=== PATIENT | female | born 1935 | race Caucasian/White ===

== ENCOUNTER 2024-03-23 10:44 | Emergency (ER) | payer BC, SELFPAY ==
[2024-03-23 11:00] VITALS: BP 123/65; PULSE 79; RESP 20; TEMP 36.7; O2SAT 99; BMI 18.8
[2024-03-23 11:20] VITALS: PULSE 95; RESP 20; O2SAT 95
--- NOTE | 2024-03-23 11:20 | EKG_ITS ---
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
--- NOTE | 2024-03-23 11:20 | XR_ITS ---
Examination: AP chest single view Technique one AP portable upright chest single view Exam date and time: March 23, 2024 1139 hrs. Comparison February 15, 2021 Indications: Shortness of breath beginning today. Findings: Abnormal interstitial disease throughout the lungs Normal heart size Prominent osteopenia Impression: Marked abnormal interstitial disease throughout the lungs, consider pneumonia superimposed upon pulmonary fibrosis
--- NOTE | 2024-03-23 11:21 | EDNOTE_ITS ---
ED SOB =RME/HPI General Chief Complaint: Shortness of Breath/Dyspnea Stated Complaint: SOB Time Seen by Provider: 03/23/24 11:13 Arrival date/time: 03/23/24 10:44 RME / HPI RME / HPI Narrative: 88-year-old female patient was brought in for evaluation regarding shortness of breath. Patient is having shortness of breath, and goes for the last 1 to 2 weeks, associated with chest discomfort. Patient also complained of on and off dry cough. Denies any swelling to the leg. Denies any abdominal pain denies any fever denies any sore throat denies any flulike symptoms. When the EMS arrived patient was noted to be satting 88% on room air. Her family visited her today and called EMS. Related Data Home Medications ?Medication ?Instructions ?Recorded ?Confirmed aspirin 81 mg tablet,delayed 81 mg PO QDAY ##0 8 02/11/21 release carbidopa 25 mg-levodopa 100 mg 1 tab PO TID #0 tabs 0 03/01/17 02/11/21 tablet metoprolol succinate 100 mg 100 mg PO QDAY ##0 8 02/11/21 tablet,extended release 24 hr (Toprol XL) Previous Rx's ?Medication ?Instructions ?Recorded albuterol sulfate 90 mcg/actuation 1 inh inhalation QI D PRN shortness 03/23/24 aerosol inhaler of breath or wheezing #8.5 g federico cefuroxime axetil 500 mg tablet 500 mg PO BID #14 tabs 03/23/24 doxycycline monohydrate 100 mg 100 mg PO BID #14 caps 03/23/24 capsule Allergies Allergy/AdvReac Type Severity Reaction Status Date / Time No Known Allergies Allergy Unverified 02/12/21 09:08 Review of Systems Review of Systems Narrative Review of Systems: Review of system reviewed and within normal limits except mentioned in HPI ED Exam Narrative Physical exam: VITAL SIGNS: Reviewed. GENERAL APPEARANCE: Alert and interactive, follows commands, no acute distress, HEAD AND FACE: Non-traumatic. ENT: PERRL, pink conjunctivitis, eyelid no trauma, Mucous membrane moist. NECK: Supple, nontender, no nuchal rigidity. CHEST: No tenderness, no crepitus, no paradoxical movement, no retractions. LUNGS: Clear, well ventilated, symmetric, no rales, no wheezing, no ronchi, no stridor, good breath sounds bilaterally. HEART: Regular rate, regular rhythm, no murmur, no gallops. ABDOMEN: Soft, positive bowel sounds, nondistended, no guarding, nontender, no rebound, no masses, RECTAL: Deferred. GENITAL: Deferred. NEUROLOGICAL: Gross motor function intact sensory function intact, Appropriate for age. MUSCULOSKELETAL: low back nontender, full range of motion. EXTREMITIES: Nontender, full range of motion. SKIN: Color pink, dry, no rash, no lacerations, no abrasions, no contusions. LYMPHATICS: Deferred. Course Quality Measures none Orders Category Date Time Status EKG (ED ONLY) *Do not use* NOW Care 03/23/24 11:20 Completed EKG (ED Only) Stat Exams 03/23/24 11:20 Draft US gall bladder Stat Exams 03/23/24 14:37 Stop Req XR chest 1V Stat Exams 03/23/24 11:20 Completed B-Type Natriuretic Peptide Stat Lab 03/23/24 11:30 Completed CBC Stat Lab 03/23/24 11:30 Completed Comprehensive Metabolic Panel Stat Lab 03/23/24 11:30 Completed Partial Thromboplastin Time Stat Lab 03/23/24 12:30 Completed Prothrombin Time with INR Stat Lab 03/23/24 12:30 Completed Troponin I Stat Lab 03/23/24 11:30 Completed Urinalysis, C/S if Indicated Stat Lab 03/23/24 13:51 Completed Urine Culture Stat Lab 03/23/24 13:51 Received cefTRIAXone [Rocephin] 1,000 mg Med 03/23/24 15:12 Active Sodium Chloride 0.9% [Ns] 50 ml IV X1 Vital Signs Vital signs: Vital Signs Temperature 98.1 F 03/23/24 11:00 Pulse Rate 79 03/23/24 11:00 Respiratory Rate 20 03/23/24 11:00 Blood Pressure 123/65 03/23/24 11:00 Pulse Oximetry (%) 99 03/23/24 11:00 Oxygen Delivery Method Nasal Cannula 03/23/24 11:00 Oxygen Flow Rate 2 03/23/24 11:00 Shortness of Breath / Dyspnea MDM Narrative MDM Narrative:: 88-year-old female patient was brought in for evaluation regarding shortness of breath. Patient is having shortness of breath, and goes for the last 1 to 2 weeks, associated with chest discomfort. Patient also complained of on and off dry cough. Denies any swelling to the leg. Denies any abdominal pain denies any fever denies any sore throat denies any flulike symptoms. When the EMS arrived patient was noted to be satting 88% on room air. Her family visited her today and called EMS. Patient's been off oxygen for her entire stay in the emergency room and satting 95% on room air Laboratory workup is significant for UTI no leukocytosis noted. Chest x-ray showed Marked abnormal interstitial disease throughout the lungs, consider pneumonia superimposed upon pulmonary fibrosis EKG as interpreted by me shows sinus rhythm, ventricular to 68 bpm, no ST segment elevation depression noted. 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 Patient appears nontoxic and hemodynamically stable. Patient discharged home and instructed to follow-up with primary care provider in 24 to 48 hours. Instructed to return to the emergency department immediately if worsening of symptoms Patient data External records reviewed:: None Clinical information provided by:: patient Social determinants that could affect healthcare access:: none Patient has the following chronic illnesses:: Hypertension Parkinson How is presenting disease/condition affected by chronic disease/condition?: exacerbated by Evaluation data The following diagnostics were reviewed and interpreted by me:: lab results, ra diology exam(s) and EKG tracing(s) Lab and/or radiology exams considered but not ordered:: None Interpretation Summary: See results in MDM Medications / Prescriptions Medications or Prescriptions considered but not ordered:: None Medication administrations:: Medication Administration History Ceftriaxone Sodium 1,000 mg/ (Sodium Chloride) 50 mls @ 100 mls/hr IV X1 ONE Stop: 03/23/24 15:41 Ceftriaxone IM Consultations Consultation(s) initiated? (list below): No Diagnosis Shortness of Breath Differential Diagnosis: congestive heart failure and community acquired pneumonia Most likely diagnosis given after review of the tests above:: Pneumonia, UTI Admission Indicated Admission indicated?: not indicated Admission Request Was there a request for admission?: No Disposition Plan Disposition Plan: Discharge Discharge Attestation Discharge Attestation: The patient and all family members were given an opportunity to ask questions and understood the discharge instructions. Discharge instructions specifically effects, indications for sooner follow up or return to the emergency department, and the expected course of current diagnosis. Patient condition: Stable Discharge Plan Plan Patient Disposition: HOME (Self Care) Disposition Comment: stable Prescriptions/Referrals Prescriptions/Med Rec: New doxycycline monohydrate 100 mg capsule 100 mg PO BID Qty: 14 0RF cefuroxime axetil 500 mg tablet 500 mg PO BID Qty: 14 0RF albuterol sulfate 90 mcg/actuation HFA aerosol inhaler 1 inh inhalation QID PRN (Reason: shortness of breath or wheezing) Qty: 8.5 0RF No Action metoprolol succinate [Toprol XL] 100 MG tablet extended release 24 hr 100 mg PO QDAY Qty: 0 aspirin 81 mg Tablet,Delayed Release (Dr/Ec) 81 mg PO QDAY Qty: 0 carbidopa-levodopa 25-100 mg Tablet 1 tab PO TID Qty: 0 Referrals: Jordan Dent MD [Primary Care Provider] - In 1 week Problem List Clinical Impression: UTI (urinary tract infection), PNA (pneumonia) Patient/Caregiver Discharge Instructions Discharge Activity: activity as tolerated Education Materials: Understanding Urinary Tract ..., ED Pneumonia (Adult) Additional Instructions: Thank you for the opportunity for serving you today. You are stable for discharged . You are advised to: Follow-up with your PCP in 1 to 2 days Return to ED for worsening of symptoms Increase oral fluids Take medication as prescribed Print Language: Ukrainian Stand Alone Forms: Mojgan Award Info., Patient Portal Info Letter PA/RETAIL PRODUCT DEMO SPECIALIST Supervising Physician SUBHASH/RETAIL PRODUCT DEMO SPECIALIST Supervising Physician: MD Mecca
--- NOTE | 2024-03-23 11:38 | PC.NURSE ---
PATIENT ARRIVED ED VIA EMS SECONDARY TO SHORTNESS OF BREATH. PER PATIENT AND FAMILY SHE HAS HAD COUGH TIMES 2 WEEKS AND SEEMS TO BE GETTING WORSE. PATIENT STATES SHE HAS CHEST PAIN WHEN COUGHING. NON PRODUCTIVE. NO OTHER COMPLAINTS AT TIME OF ARRIVAL. PATIENT PLACE ON [facility] WITH IV, MONITOR, O2. PATIENT TOLERATED WELL. FAMILY AT BEDSIDE. CALL LIGHT AND INSTRUCTIONS GIVEN. WILL CONTINUE TO MONITOR.
[2024-03-23 11:43] LABS: Basophils # (Auto) 0.1 Thou/mm3 (0.0-0.2); Basophils % (Auto) 1 % (0-2.5); Eosinophils # (Auto) 0.1 Thou/mm3 (0.0-0.5); Eosinophils % (Auto) 1 % (0-10); Hematocrit 33.7 % (36.0-46.0); Hemoglobin 11.4 g/dL (12.0-16.0); Immature Granulocytes % (Auto) 1 % (0-0); Immature Granulocytes Auto 0.07 Thou/mm3 (0.00-0.00); Lymphocytes # (Auto) 0.8 Thou/mm3 (1.0-4.8); Lymphocytes % (Auto) 8 % (10-50); Mean Corpuscular HGB Conc 33.8 g/dl (31.0-37.0); Mean Corpuscular Hemoglobin 30.8 pg (25.0-35.0); Mean Corpuscular Volume 91 fL (80-100); Monocytes # (Auto) 1.1 Thou/mm3 (0.0-0.8); Monocytes % (Auto) 10 % (0-12); Neutrophils # (Auto) 8.4 Thou/mm3 (1.8-7.7); Neutrophils % (Auto) 80 % (37-80); Nucleated Red Blood Cell % 0 /100 WBC (0); Platelet Count 138 Thou/mm3 (140-440); RDW Standard Deviation 44.9 fL (36.4-46.3); White Blood Count 10.5 Thou/mm3 (3.6-11.0)
[2024-03-23 12:00] VITALS: BP 126/57; PULSE 66; RESP 22; TEMP 36.7; O2SAT 97
[2024-03-23 12:00] LABS: B-Type Natriuretic Peptide 71 pg/mL (0-100)
[2024-03-23 12:12] LABS: Alanine Aminotransferase < 7 U/L (10-49); Albumin, Serum 3.9 gm/dL (3.4-4.8); Albumin/Globulin Ratio 1.6 (1.2-2.2); Alkaline Phosphatase 56 U/L (46-116); Anion Gap 7 (7-16); Aspartate Amino Transferase 15 U/L (0-34); BUN/Creatinine Ratio 23 Ratio (12-20); Bilirubin,Total 0.7 mg/dL (0.3-1.2); Blood Urea Nitrogen 23 mg/dL (9-23); Calcium 9.4 mg/dL (8.3-10.6); Calcium (Corrected) 9.5 mg/dL (8.5-10.1); Carbon Dioxide 25.9 mMol/L (20.0-31.0); Chloride 105 mMol/L (98-107); Globulin 2.5 gm/dL (2.3-3.5); Glucose 117 mg/dL (74-106); Osmolality,Calculated 280 (275-295); Potassium 4.3 mMol/L (3.4-5.1); Sodium 138 mMol/L (136-145); Total Protein 6.4 gm/dL (5.7-8.2); Troponin I < 0.020 ng/mL (0.0-0.045); eGFR 54 See Note
[2024-03-23 13:04] LABS: INR 1.1 (0.9-1.3); Partial Thromboplastin Time 32.1 Seconds (22.0-36.0); Prothrombin Time 11.5 Seconds (9.0-12.2)
[2024-03-23 14:02] LABS: Collection Type, Urine Clean Catch
[2024-03-23 14:16] VITALS: BP 167/64; PULSE 72; RESP 18; TEMP 36.4; O2SAT 96
[2024-03-23 15:06] LABS: Bilirubin,Urine Negative (Negative); Blood,Urine Negative (Negative); Clarity,Urine Turbid (Clear/Hazy); Color,Urine Yellow (Lt Yel-Yel); Glucose, Urine Negative (Negative); Hyaline Casts,Urine < 1 /hpf (0-1); Ketones,Urine 1+ (Negative); Leukocyte Esterase,Urine Positive (Negative); Nitrite,Urine Negative (Negative); Protein,Urine Trace (Neg - Trace); RBC,Urine 6 /hpf (0-3); Specific Gravity,Urine 1.023 (1.001-1.035); Squamous Epithelial Cell,Urine 9 /hpf (0-5); WBC,Urine 28 /hpf (0-5)
[2024-03-23 15:08] LABS: Culture Indicated,Urine Yes
[2024-03-23 15:48] VITALS: BP 156/63; PULSE 78; RESP 22; O2SAT 95
[2024-03-23 16:10] VITALS: BP 165/76; PULSE 63; RESP 20; TEMP 36.6; O2SAT 96
== END 2024-03-23 16:47 | disposition home or self-care (01) ==
PROVIDERS: Nurse Practitioner Family; Emergency Provider Emergency Medicine; PCP Internal Medicine
DX: J18.9 Pneumonia, unspecified organism (principal); N39.0 Urinary tract infection, site not specified; I10 Essential (primary) hypertension; G20.A1 Parkinson's disease without dyskinesia, without mention of fluctuations
CPT/HCPCS: 36415; 71045; 80053; 81001; 83880; 84484; 85025; 85610; 85730; 87086; 93005; 99283

== ENCOUNTER → 2024-04-17 | Outpatient (CLI) | payer BC, SELFPAY ==
--- NOTE | 2024-04-17 15:44 | XR_ITS ---
Examination: PA lateral chest 2 views Technique: Upright AP lateral chest 2 views Exam date and time: April 17, 2024, 1607 hrs. Comparison March 21, 2024 Indications: Coughing 2 months. Findings: Normal heart size Severe bilateral pulmonary fibrosis Moderate osteopenia Impression: Severe bilateral pulmonary fibrosis
== END | disposition home or self-care (01) ==
PROVIDERS: PCP Internal Medicine; Referring Provider Nurse Practitioner Family; Visit Provider Nurse Practitioner Family
DX: J84.10 Pulmonary fibrosis, unspecified (principal)
CPT/HCPCS: 71046

== ENCOUNTER → 2024-05-15 | Outpatient (CLI) | payer BC, SELFPAY ==
--- NOTE | 2024-05-15 16:30 | XR_ITS ---
Examination: CT chest, without intravenous contrast. Sagittal and coronal 2-D reconstructions. Exam date and time: May 15, 2024 1626 hrs. Comparison July 27, 2023 Indications: Coughing beginning 2 months ago. CTDI:vol (mGy) 6.87 DLP: (mGycm) 207 Technique: Multiple 3.0 mm axial sections of the chest to been obtained. Bone and lung density settings are obtained. Sagittal and coronal 2-D reconstructions have been obtained. Low dose protocols were performed. One or more of the following dose reduction techniques were used; automated exposure control, adjustment of the mA and/or KV according to patient size, use of iterative reconstruction technique. Findings: No thoracic aortic aneurysm dilatation Pulmonary artery segments are not enlarged Mild enlargement cardiac contour No paratracheal tracheobronchial or bronchopulmonary the COPD Moderate to severe bilateral pulmonary fibrosis with dilated bronchi in both lungs, more prominent in the upper lobes 16mm thick-walled cavitary lesion right upper lobe axial image 75 with soft tissue parenchymal disease No visualized liver or splenic lesion Contracted gallbladder No pancreatic or adrenal mass Possible 18 mm splenic artery aneurysm Impression: Moderate to severe bilateral pulmonary fibrosis Bronchiectasis 16 mm thick-walled cavitary lesion right upper lobe with soft tissue parenchymal disease, differential would include infection including active tuberculosis, underlying pulmonary neoplasm not excluded Possible 18 mm splenic artery aneurysm, recommend CTA abdomen pelvis post intravenous contrast follow-up
== END | disposition home or self-care (01) ==
LOC: CCTX 16:06
PROVIDERS: PCP Internal Medicine; Referring Provider Internal Medicine; Visit Provider Internal Medicine
DX: J84.10 Pulmonary fibrosis, unspecified (principal); K76.9 Liver disease, unspecified; R05.3 Chronic cough
CPT/HCPCS: 71250

== ENCOUNTER → 2024-06-06 | Outpatient (CLI) | payer BC, SELFPAY ==
[2024-06-06 16:40] LABS: Basophils # (Auto) 0.1 Thou/mm3 (0.0-0.2); Basophils % (Auto) 1 % (0-2.5); Eosinophils # (Auto) 0.4 Thou/mm3 (0.0-0.5); Eosinophils % (Auto) 4 % (0-10); Hematocrit 34.9 % (36.0-46.0); Hemoglobin 11.5 g/dL (12.0-16.0); Immature Granulocytes % (Auto) 1 % (0-0); Immature Granulocytes Auto 0.06 Thou/mm3 (0.00-0.00); Lymphocytes # (Auto) 1.2 Thou/mm3 (1.0-4.8); Lymphocytes % (Auto) 12 % (10-50); Mean Corpuscular Hemoglobin 29.8 pg (25.0-35.0); Mean Corpuscular Volume 90 fL (80-100); Monocytes # (Auto) 0.9 Thou/mm3 (0.0-0.8); Monocytes % (Auto) 9 % (0-12); Neutrophils # (Auto) 7.4 Thou/mm3 (1.8-7.7); Neutrophils % (Auto) 74 % (37-80); Nucleated Red Blood Cell % 0 /100 WBC (0); Platelet Count 235 Thou/mm3 (140-440); RDW Standard Deviation 46.1 fL (36.4-46.3); Red Blood Count 3.86 Miln/mm3 (4.00-5.20); White Blood Count 10.1 Thou/mm3 (3.6-11.0)
[2024-06-06 16:45] LABS: Glucose Estimated Average 108 mg/dL (80-131); Hemoglobin A1C 5.4 % Hgb (4.8-6.0)
[2024-06-06 17:04] LABS: Alanine Aminotransferase < 7 U/L (10-49); Albumin, Serum 4.1 gm/dL (3.4-4.8); Albumin/Globulin Ratio 1.5 (1.2-2.2); Alkaline Phosphatase 55 U/L (46-116); Anion Gap 6 (7-16); Aspartate Amino Transferase 16 U/L (0-34); BUN/Creatinine Ratio 19 Ratio (12-20); Bilirubin,Total 0.3 mg/dL (0.3-1.2); Blood Urea Nitrogen 21 mg/dL (9-23); Calcium 9.5 mg/dL (8.3-10.6); Calcium (Corrected) 9.5 mg/dL (8.5-10.1); Carbon Dioxide 29.6 mMol/L (20.0-31.0); Cardiac Risk Estimate 3.1 RATIO (3.7-5.6); Chloride 103 mMol/L (98-107); Cholesterol 182 mg/dL (132-200); Creatinine (Component) 1.1 mg/dL (0.6-1.3); Globulin 2.8 gm/dL (2.3-3.5); Glucose 101 mg/dL (74-106); HDL Cholesterol 58 mg/dL (40-60); LDL Cholesterol,Calculated 106 mg/dL (0-130); Osmolality,Calculated 280 (275-295); Potassium 4.9 mMol/L (3.4-5.1); Sodium 139 mMol/L (136-145); Thyroid Stimulating Hormone 3.07 uIU/mL (0.55-4.78); Total Protein 6.9 gm/dL (5.7-8.2); Triglycerides 90 mg/dL (30-150); eGFR 48 See Note
[2024-06-07 11:54] LABS: Cocci Serology, IgM Negative (Negative)
[2024-06-08 14:28] LABS: Cocci Serology, IgG Negative (Negative)
== END | disposition home or self-care (01) ==
LOC: COPL 15:28
PROVIDERS: PCP Internal Medicine; Referring Provider Internal Medicine; Visit Provider Internal Medicine
DX: N18.31 Chronic kidney disease, stage 3a (principal); R05.3 Chronic cough; R53.83 Other fatigue; R93.89 Abnormal findings on diagnostic imaging of other specified body structures; Z11.1 Encounter for screening for respiratory tuberculosis
CPT/HCPCS: 36415; 80053; 80061; 83036; 84443; 85025; 86331; 86635

== ENCOUNTER 2024-06-10 16:35 | Emergency (ER) | payer BC, SELFPAY ==
[2024-06-10 16:44] VITALS: BP 170/52; PULSE 76; RESP 20; TEMP 36.8; O2SAT 92
--- NOTE | 2024-06-10 17:03 | XR_ITS ---
Examination: PA and lateral chest 2 views TECHNIQUE: Upright PA and lateral chest 2 views Exam date and time: June 10, 2024, 1716 hours Comparison April 17, 2024 INDICATIONS: Coughing beginning 3 weeks ago. FINDINGS: Severe bilateral pulmonary fibrosis Diffuse superimposed pneumonia right lung Normal heart size Osseous structures are intact IMPRESSION: Severe bilateral pulmonary fibrosis Significant superimposed pneumonia diffusely in the right lung
--- NOTE | 2024-06-10 17:04 | PD.EDRME ---
Rapid Medical Screening Exam RME Arrival date/time: 06/10/24 16:35 88-year-old female presents to the emergency department complains of shortness of breath Chief Complaint: General Adult/Misc Complain Vital signs: Vital Signs Temperature 98.2 F 06/10/24 16:44 Pulse Rate 76 06/10/24 16:44 Respiratory Rate 20 06/10/24 16:44 Blood Pressure 170/52 H 06/10/24 16:44 Pulse Oximetry (%) 92 L 06/10/24 16:44 Oxygen Delivery Method Room Air 06/10/24 16:44
--- NOTE | 2024-06-10 17:05 | XR_ITS ---
Examination: CT chest, without intravenous contrast. Sagittal and coronal 2-D reconstructions. Exam date and time: June 10, 2024 1749 hours Comparison May 15, 2024 INDICATIONS: Coughing 2 months, CT chest May 15, 2024 16 mm cavitary lesion right upper lobe with surrounding parenchymal disease, bronchiectasis CTDI:vol (mGy) 5.58 DLP: (mGycm) 183 Technique: Multiple 3.0 mm axial sections of the chest to been obtained. Bone and lung density settings are obtained. Sagittal and coronal 2-D reconstructions have been obtained. Low dose protocols were performed. One or more of the following dose reduction techniques were used; automated exposure control, adjustment of the mA and/or KV according to patient size, use of iterative reconstruction technique. 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
[2024-06-10 17:53] LABS: Basophils # (Auto) 0.1 Thou/mm3 (0.0-0.2); Basophils % (Auto) 1 % (0-2.5); Eosinophils # (Auto) 0.5 Thou/mm3 (0.0-0.5); Eosinophils % (Auto) 6 % (0-10); Hematocrit 37.3 % (36.0-46.0); Hemoglobin 12.8 g/dL (12.0-16.0); Immature Granulocytes % (Auto) 1 % (0-0); Immature Granulocytes Auto 0.04 Thou/mm3 (0.00-0.00); Lymphocytes # (Auto) 1.4 Thou/mm3 (1.0-4.8); Lymphocytes % (Auto) 17 % (10-50); Mean Corpuscular HGB Conc 34.3 g/dl (31.0-37.0); Mean Corpuscular Volume 87 fL (80-100); Monocytes # (Auto) 0.8 Thou/mm3 (0.0-0.8); Monocytes % (Auto) 9 % (0-12); Neutrophils # (Auto) 5.4 Thou/mm3 (1.8-7.7); Neutrophils % (Auto) 67 % (37-80); Nucleated Red Blood Cell % 0 /100 WBC (0); Platelet Count 221 Thou/mm3 (140-440); RDW Standard Deviation 45.8 fL (36.4-46.3); Red Blood Count 4.27 Miln/mm3 (4.00-5.20); White Blood Count 8.2 Thou/mm3 (3.6-11.0)
[2024-06-10 18:12] LABS: Alanine Aminotransferase < 7 U/L (10-49); Albumin, Serum 4.6 gm/dL (3.4-4.8); Albumin/Globulin Ratio 1.4 (1.2-2.2); Alkaline Phosphatase 61 U/L (46-116); Anion Gap 7 (7-16); Aspartate Amino Transferase 17 U/L (0-34); BUN/Creatinine Ratio 15 Ratio (12-20); Bilirubin,Total 0.4 mg/dL (0.3-1.2); Blood Urea Nitrogen 18 mg/dL (9-23); Calcium 9.4 mg/dL (8.3-10.6); Calcium (Corrected) 9.4 mg/dL (8.5-10.1); Carbon Dioxide 27.8 mMol/L (20.0-31.0); Chloride 101 mMol/L (98-107); Creatinine (Component) 1.2 mg/dL (0.6-1.3); Globulin 3.3 gm/dL (2.3-3.5); Glucose 100 mg/dL (74-106); Osmolality,Calculated 273 (275-295); Potassium 4.7 mMol/L (3.4-5.1); Sodium 136 mMol/L (136-145); Total Protein 7.9 gm/dL (5.7-8.2); eGFR 44 See Note
[2024-06-10 18:26] LABS: B-Type Natriuretic Peptide 53 pg/mL (0-100)
[2024-06-10 19:19] VITALS: BP 176/80; PULSE 73; RESP 18; TEMP 36.7; O2SAT 95
--- NOTE | 2024-06-10 19:49 | EDNOTE_ITS ---
ED General RME/HPI General Chief complaint: Flu Like Symptoms Stated complaint: SENT BY PCP FOR TB TESTING, COUGH X 2 MONTHS Time Seen by Provider: 06/10/24 19:33 Arrival date/time: 06/10/24 16:35 CC: Chronic cough after deep inhalation, mild shortness of breath HPI ongoing for the past 3 months. Today patient got up and was not interested in eating breakfast which was of concern to family members who presented her here. Patient is awake alert oriented speaking in full sentences oxygen saturations greater than 97% denies any coughing up blood weight loss or foreign travel. RME / HPI RME / HPI narrative: 06/10/24 16:35 88-year-old female presents to the emergency department complains of shortness of breath Related Data Home Medications ?Medication ?Instructions ?Recorded ?Confirmed aspirin 81 mg tablet,delayed 81 mg PO QDAY ##0 8 02/11/21 release carbidopa 25 mg-levodopa 100 mg 1 tab PO TID #0 tabs 0 03/01/17 02/11/21 tablet metoprolol succinate 100 mg 100 mg PO QDAY ##0 8 02/11/21 tablet,extended release 24 hr (Toprol XL) Previous Rx's ?Medication ?Instructions ?Recorded albuterol sulfate 90 mcg/actuation 1 inh inhalation QI D PRN shortness 03/23/24 aerosol inhaler of breath or wheezing #8.5 g federico cefuroxime axetil 500 mg tablet 500 mg PO BID #14 tabs 03/23/24 doxycycline monohydrate 100 mg 100 mg PO BID #14 caps 03/23/24 capsule doxycycline hyclate 100 mg capsule 100 mg PO BID #14 c aps 06/10/24 prednisone 20 mg tablet See Taper PO BID 3 days #6 t abs 06/10/24 Allergies Allergy/AdvReac Type Severity Reaction Status Date / Time bee venom protein (honey bee) Allergy Verified 06/10/24 16:40 Review of Systems Review of Systems Narrative Review of Systems: GEN: No fever, no chills, no weight loss EYES: No discharge, no visual changes, no pain HEENT: No ear pain, no congestion, no sore throat PULM: No shortness of breath, + cough, no congestion CV: No chest pain, no dyspnea on exertion, no palpitations GI: No nausea, no vomiting, no diarrhea, no pain, no constipation : No frequency, no urgency, no dysuria MUSC/SKEL: No joint pain, no back pain SKIN: No rash PSYCH: No hallucinations, no depression HEME/LYMPH: No easy bleeding or bruising tendencies NEURO: No weakness, no headache Past Medical History Past Medical History NEUROLOGIC: Positive Neurological Disorders and Parkinson's Disease; Negative Seizures CARDIAC: Positive Cardiac Disorders and Hypertension; Negative Congestive Heart Failure RESPIRATORY: Negative Chronic Obstructive Pulmonary Disease (COPD) or Asthma GENITOURINARY: Negative Renal Disease ENDOCRINE: Negative Diabetes Mellitus Type 1 or Diabetes Mellitus Type 2 HEMATOLOGIC: Negative Sickle Cell Disease OTHER HISTORY: Negative Blood Transfusions, Blood Transfusion Reaction or Anesthesia Reactions Surgical History SURGICAL: Positive Tonsillectomy and Hysterectomy Social History SMOKING STATUS: Former smoker SUBSTANCE USE: does not use ED Exam Narrative Physical exam: [General: Thin, emaciated, but not deconditioned, not in any acute distress Head normocephalic HEENT: Within acceptable limits Neck is supple nontender Chest equal chest rise nontender to palpation Respiratory: End expiratory crackles, cough elicited with deep inhalation but not with normal respiration. No shortness of breath while supine in bed. CV: Rate rhythm is regular no murmurs rubs or clicks Abdomen is flat soft nontender no masses positive bowel sounds all 4 quadrants Back: No CVA tenderness no spinous process tenderness from cervical spine thoracic and lumbar spine Skin: Intact no petechiae rash induration ulceration or crepitus Extremities: Moving all extremity against resistance cap refill less than 2 seconds neurosensory intact Neuro: Awake alert oriented x3 Glascow coma 15 no focal deficits] Course Course Course Narrative: Patient is nontoxic stable vital signs oxygen saturation of 97% while discussing the patient's condition. This time comfortable given the patient IM injection and starting her on steroids and antibiotics at home. Patient is vies if there is worsening of symptoms return the emergency room for further evaluation. Quality Measures none Orders Category Date Time Status CT chest wo con Stat Exams 06/10/24 17:05 Completed XR chest 2V Stat Exams 06/10/24 17:03 Completed BNP [B-Type Natriuretic Peptide] Stat Lab 06/10/24 17:30 Completed CBC Stat Lab 06/10/24 17:30 Completed CMP [Comprehensive Metabolic Panel] Stat Lab 06/10/24 17:30 Completed Cocci Serology IgM with reflex to IgG [Cocci Serology, Lab 06/10/24 17:30 Received Unk History] Stat cefTRIAXone [Rocephin] 1,000 mg Med 06/10/24 19:48 Discontinued Lidocaine 1% 20 ml [Xylocaine 1% 20 ML] 2.1 ml IM X1 predniSONE Med 06/10/24 19:47 Discontinued 20 mg PO X1 ONE Vital Signs Vital signs: Vital Signs Temperature 98.2 F 06/10/24 16:44 Pulse Rate 76 06/10/24 16:44 Respiratory Rate 20 06/10/24 16:44 Blood Pressure 170/52 H 06/10/24 16:44 Pulse Oximetry (%) 92 L 06/10/24 16:44 Oxygen Delivery Method Room Air 06/10/24 16:44 Discharge Plan Plan Patient Disposition: HOME (Self Care) Patient condition on transfer: Stable Prescriptions/Referrals Prescriptions/Med Rec: New doxycycline hyclate 100 mg capsule 100 mg PO BID Qty: 14 0RF prednisone 20 mg tablet See Taper PO BID 3 Days Qty: 6 0RF Taper: Prednisone Taper 20 mg DAILY for 2 Days and 0 Hour 10 mg DAILY for 2 Days and 0 Hour 5 mg DAILY for 7 Days and 0 Hour No Action metoprolol succinate [Toprol XL] 100 MG tablet extended release 24 hr 100 mg PO QDAY Qty: 0 aspirin 81 mg Tablet,Delayed Release (Dr/Ec) 81 mg PO QDAY Qty: 0 carbidopa-levodopa 25-100 mg Tablet 1 tab PO TID Qty: 0 doxycycline monohydrate 100 mg capsule 100 mg PO BID Qty: 14 0RF cefuroxime axetil 500 mg tablet 500 mg PO BID Qty: 14 0RF albuterol sulfate 90 mcg/actuation HFA aerosol inhaler 1 inh inhalation QID PRN (Reason: shortness of breath or wheezing) Qty: 8.5 0RF Referrals: Aquiles Giordano MD [Physician] - In 1 week No Primary/Family,Physician [Primary Care Provider] - In 1 week Problem List Clinical Impression: Pneumonia, Pulmonary fibrosis Patient/Caregiver Discharge Instructions Education Materials: Chest and Lung Problems, Treating Pneumonia Additional Instructions: Take the medications as prescribed, if there is a worsening of symptoms in spite of the medications return the emergency room immediately for further evaluation. Follow-up with your primary care doctor please make sure you get a nebulizer for all the nebulizer solution you have at home. Print Language: Colombian Stand Alone Forms: Mojgan Award Info., Patient Portal Info Letter SUBHASH/LORENA Supervising Physician ANGELO Supervising Physician: Jimbo Mckeon ENP [facility] Clinical Information Provided by: patient and family Medical Records reviewed [facility] Meds/Rx considered, not ordered None Labs/Rad/Tests considered, not ordered None EKG EKG not done Labs Labs: Interpreted by me Lab(s) Interpretation(s): CBC shows no acute leukocytosis anemia thrombocytopenia CMP shows no significant electrolyte imbalances renal impairment transaminitis or T. bili elevation BNP is negative Cocci titer is pending. Imaging Imaging interpretation: Interpreted by me Imaging Interpretation(s): CT of the chest as interpreted by me read by radiology shows pulmonary fibrosis with superimposed bilateral pneumonia. Chest x-ray shows pulmonary fibrosis with a superimposed pneumonia. Medication Administration(s) Medication Administration History Discontinued Medications Ceftriaxone Sodium 1,000 mg/ (Lidocaine HCl 2.1 ml) 0 mg IM X1 ONE Stop: 06/10/24 19:49 Last Admin: 06/10/24 20:15 Dose: 1,000 mg Documented By: OSIRIS Prednisone (Prednisone 20 Mg Tablet) 20 mg PO X1 ONE Stop: 06/10/24 19:48 Last Admin: 06/10/24 20:14 Dose: 20 mg Documented By: OSIRIS None
[2024-06-10] MEDS: predniSONE 20 MG TABLET PO (20:14)
[2024-06-10] MEDS: cefTRIAXone 1,000 MG, LIDOCAINE 1% 20 ML 2.1 ML IM (20:15)
[2024-06-11 12:54] LABS: Cocci Serology, IgM Negative (Negative)
[2024-06-13 12:52] LABS: Cocci Serology, IgG Negative (Negative)
== END 2024-06-10 20:35 | disposition home or self-care (01) ==
PROVIDERS: Nurse Practitioner Primary Care; Emergency Provider Emergency Medicine
DX: J18.9 Pneumonia, unspecified organism (principal); J84.10 Pulmonary fibrosis, unspecified; Z87.891 Personal history of nicotine dependence
CPT/HCPCS: 36415; 71046; 71250; 80053; 83880; 85025; 86331; 86635; 96372; 99284; J0696; J3490; J7512

== ENCOUNTER → 2024-06-19 | Outpatient (CLI) | payer BC, SELFPAY ==
[2024-06-19 11:07] LABS: Quantiferon-TB* See Sep Rpt
== END | disposition home or self-care (01) ==
LOC: COPL 10:42
PROVIDERS: PCP Internal Medicine
DX: J18.9 Pneumonia, unspecified organism (principal)
CPT/HCPCS: 86480

== ENCOUNTER → 2024-07-08 | Outpatient (CLI) | payer MEDICARE, SELFPAY ==
[2024-07-08 11:30] LABS: Quantiferon-TB* See Sep Rpt
== END | disposition home or self-care (01) ==
PROVIDERS: PCP Internal Medicine
DX: J98.4 Other disorders of lung (principal)
CPT/HCPCS: 86480

== ENCOUNTER 2024-07-23 15:48 | Emergency (ER) | payer MEDICARE, SELFPAY ==
[2024-07-23 16:18] VITALS: BP 168/72; PULSE 73; RESP 18; TEMP 36.6; O2SAT 94
--- NOTE | 2024-07-23 16:26 | XR_ITS ---
Examination: Ribs, right, with PA chest, 4 views Technique: Chest PA, RIBS AP, RPO, LPO, 4 views Exam date and time: 11/22/2024 1717 hours INDICATIONS: Ground-level fall yesterday with injury to the right chest, right chest pain. FINDINGS: Severe bilateral pulmonary fibrosis No pneumothorax Ectatic thoracic aorta Severe osteopenia No acute rib fractures IMPRESSION: Severe pulmonary fibrosis No pneumothorax No acute rib fractures
--- NOTE | 2024-07-23 16:26 | XR_ITS ---
Examination: CT brain head without contrast. 2-D sagittal coronal reconstructions Date and time of exam:July 23, 2024 1634 hours Comparison February 26, 2019 MEDICATIONS: Ground-level fall today CTDI: vol (mGy):45.4 DLP: (mGycm):968 Technique: Multiple CT axial sections of the brain have been obtained, 5 mm slice thickness. Contrast has not been administered. 2-D sagittal, coronal reconstructions have been obtained Low dose protocols were performed. One or more of the following dose reduction techniques were used; automated exposure control, adjustment of the mA and/or KV according to patient size, use of iterative reconstruction technique. Findings: No significant ventricular enlargement. Intra-axial or extra-axial hemorrhage density is not seen. No mass effect or midline shift Basal cisterns are not remarkable. Fourth ventricle is midline. Cranial vault intact. 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
--- NOTE | 2024-07-23 16:26 | XR_ITS ---
Examination: CT cervical spine without contrast 2-D sagittal reconstructions 2-D coronal reconstructions 3-D reconstructions. Exam date and time:July 23, 2024 1634 hours MEDICATIONS: Ground-level fall today with injury to the neck, neck pain CTDI:vol (mGy) 7.28 DLP: (mGycm) 163 Technique: Multiple 2 mm axial sections of the cervical spine have been obtained. The coronal and sagittal reconstructions have been obtained. 3-D reconstructions have been obtained. Low dose protocols were performed. One or more of the following dose reduction techniques were used; automated exposure control, adjustment of the mA and/or KV according to patient size, use of iterative reconstruction technique. Findings: Axial sections demonstrate intact base of the skull. 4 mm anterolisthesis C2 on C3, likely related to advanced degenerative disc disease C3-C4, C4-C5, C5-C6, C6-C7 C1 exhibit satisfactory relationship to the odontoid. No acute cervical vertebral body fracture seen. Alignment posterior spinous processes satisfactory. Impression: No acute cervical fracture. Possible 11 mm cavitary lesion in the right upper lobe with adjacent parenchymal disease. Recommend PA and lateral AP lordotic chest follow-up
--- NOTE | 2024-07-23 16:26 | XR_ITS ---
Examination: Shoulder,left, 3 views Technique: Shoulder AP internal rotation, AP external rotation, Y view shoulder, 3 views Exam date and time :July 23, 2024 1921 hours INDICATIONS: Ground-level fall yesterday with injury to left shoulder, left shoulder pain. FINDINGS: Prominent osteopenia. Moderate narrowing glenohumeral joint No shoulder fracture or dislocation IMPRESSION: No shoulder fracture or dislocation
--- NOTE | 2024-07-23 16:27 | PD.EDRME ---
Rapid Medical Screening Exam RME Arrival date/time: 07/23/24 15:48 88-year-old female presents department today for complaint of ground-level fall yesterday patient reports head and neck pain as well as right rib pain and left shoulder pain patient is multiple abrasions have been cleaned and dressed by primary care doctor Chief Complaint: Fall Time Seen by Provider: 07/23/24 16:12 Vital signs: Vital Signs Temperature 97.8 F 07/23/24 16:18 Pulse Rate 73 07/23/24 16:18 Respiratory Rate 18 07/23/24 16:18 Blood Pressure 168/72 H 07/23/24 16:18 Pulse Oximetry (%) 94 L 07/23/24 16:18 Oxygen Delivery Method Room Air 07/23/24 16:18
--- NOTE | 2024-07-23 19:27 | XR_ITS ---
Examination: Forearm, left, 2 views. Technique: Forearm, AP, lateral 2 views Date and time of exam: July 23, 2024 1945 hours INDICATIONS: Patient fell today with images before, forearm pain. FINDINGS: Severe osteopenia No acute fracture No dislocation No foreign body IMPRESSION: No acute fracture
--- NOTE | 2024-07-23 19:29 | PD.EDFALL ---
ED Fall Injury RME/HPI General Chief Complaint: Fall Stated Complaint: FALL YESTERDAY, PAIN TO LEFT ARM AND BRUISE FACE Time Seen by Provider: 07/23/24 16:12 Arrival date/time: 07/23/24 15:48 RME / HPI RME / HPI Narrative: 07/23/24 15:48 88-year-old female presents department today for complaint of ground-level fall yesterday patient reports head and neck pain as well as right rib pain and left shoulder pain patient is multiple abrasions have been cleaned and dressed by primary care doctor DR. MCGEE MAIN ED EVALUATION: 88 y/o female with Hx of Parkinson's Disease and HTN BIB daughter presents to ED c/o left forearm, wrist and right rib pain s/p ground-level fall x Yesterday. Patient was pushing her walker when she suddenly fell. She does not know why or how she fell. Patient was seen by PCP where a laceration was copiously irrigated, closed with Steri-strips, and covered with gauze. PCP advised patient to come to ED for further evaluation. She has been taking Ibuprofen 600 mg with relief. Denies shortness of breath or palpitations. Also denies taking blood thinners. Patient lives alone, but following incident her daughter spent the night with her. No other concerns or complaints expressed at this time. Related Data Home Medications ?Medication ?Instructions ?Recorded ?Confirmed aspirin 81 mg tablet,delayed 81 mg PO QDAY ##0 03/01/17 02/11/21 release carbidopa 25 mg-levodopa 100 mg 1 tab PO TID #0 tabs 03/01/17 02/11/21 tablet metoprolol succinate 100 mg 100 mg PO QDAY ##0 03/01/17 02/11/21 tablet,extended release 24 hr (Toprol XL) Previous Rx's ?Medication ?Instructions ?Recorded albuterol sulfate 90 mcg/actuation 1 inh inhalation QID PRN shortness 03/23/24 aerosol inhaler of breath or wheezing #8.5 grams cefuroxime axetil 500 mg tablet 500 mg PO BID #14 tabs 03/23/24 doxycycline monohydrate 100 mg 100 mg PO BID #14 caps 03/23/24 capsule doxycycline hyclate 100 mg capsule 100 mg PO BID #14 caps 06/10/24 Allergies Allergy/AdvReac Type Severity Reaction Status Date / Time bee venom protein (honey bee) Allergy Verified 06/10/24 16:40 Review of Systems Review of Systems Systems Reviewed: All systems reviewed, normal except as documented Past Medical History Past Medical History NEUROLOGIC: Positive Neurological Disorders and Parkinson's Disease CARDIAC: Positive Cardiac Disorders and Hypertension Surgical History SURGICAL: Positive Tonsillectomy and Hysterectomy ED Exam Narrative Physical exam: GEN. APPEARANCE: The patient is alert awake oriented X-3 in no distress, lying down comfortably, does not look ill/toxic. Patient has good eye contact. Patient is cooperative. VITALS: All vitals were reviewed and the pulse ox is 94% on room air which is normal according to my interpretation. HEENT: Normocephalic, atraumatic. Pupils are equal and reactive. Oral mucosa is moist. Patent Nares NECK: Supple, nontender, no thyromegaly, no meningismus, no JVD CHEST: Symmetrical, atraumatic, and with equal expansion , Nontender on palpation no deformity and no crepitus. CARDIOVASCULAR: Heart regular rhythm no murmur or gallop rub or extra beats. LUNGS: Clear to auscultation bilaterally with symmetrical chest rise. No laboring tachypnea or wheezing. No intercostal subcostal retraction. No rales and no rhonchi. ABDOMEN: Soft, flat, nontender to palpation, no guarding or rebound tenderness. There are no abnormal masses palpated. Active and normal bowel sounds. EXTREMITIES: Nontender. No edema. No cyanosis. Patient is able to move all 4 extremities well, with full ROM and good CSM. SKIN: Warm and dry, no jaundice or rashes noted. Prominent skin tear t left forearm closed with Steri-strips, thoroughly irrigated, laceration and hematoma to left upper forehead with no active bleed. MUSCULOSKELETAL: No lumbar or midline bony tenderness. There is no CVA tenderness. No paraspinal muscle spasm or tenderness. NEURO: Patient is BOLANOS x 4, Cranial nerves II through XII grossly intact. There is no focal neurologic deficits noted. 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 PSYCHIATRIC: Patient is in normal mood and affect. Course Quality Measures none Orders Category Date Time Status EKG (ED ONLY) *Do not use* NOW Care 07/23/24 19:[address] cervical spine wo con Stat Exams 07/23/24 16:[address] head/brain wo con Stat Exams 07/23/24 16:26 Completed EKG (ED Only) Stat Exams 07/23/24 19:32 Draft XR forearm LT 2V Stat Exams 07/23/24 19:27 Completed XR ribs RT min 3V w CXR1V Stat Exams 07/23/24 16:26 Completed XR shoulder LT min 2V Stat Exams 07/23/24 16:26 Completed CBC Stat Lab 07/23/24 20:08 Completed CK [Creatine Kinase] Stat Lab 07/23/24 20:08 Completed CMP [Comprehensive Metabolic Panel] Stat Lab 07/23/24 20:08 Completed Troponin I Stat Lab 07/23/24 20:08 Completed Urinalysis, C/S if Indicated Stat Lab 07/23/24 20:20 Completed Urine Culture Stat Lab 07/23/24 20:20 Received TET,DIP/PERT AC (Adult)-Tdap [Boostrix Adult (Tdap) Med 07/23/24 19:29 Discontinued Vacc] 0.5 ml IMI .ONCE ONE Vital Signs Vital signs: Vital Signs Temperature 97.8 F 07/23/24 16:18 Pulse Rate 73 07/23/24 16:18 Respiratory Rate 18 07/23/24 16:18 Blood Pressure 168/72 H 07/23/24 16:18 Pulse Oximetry (%) 94 L 07/23/24 16:18 Oxygen Delivery Method Room Air 07/23/24 16:18 Fall MDM Narrative MDM Narrative:: Scribe Attestation: Opal Anton am scribing for and in the presence of Dr. Mcgee. Provider Notation: Although this document has been carefully reviewed, there may still be some phonetic and other typographical errors.? These errors are purely grammatical due to imperfections in the software program and should not be construed in any way to? compromise the substance of the patient's medical care during this visit. X-rays are unremarkable, CT of spine with no acute abnormalities. Updated patient and daughter n lung findings and stated that this was known. Patient data External records reviewed:: [facility] previous records (Reviewed prior ED records from 06/10/24. Patient was seen for Pneumonia.) Clinical information provided by:: patient Social determinants that could affect healthcare access:: none Patient has the following chronic illnesses:: Parkinson's Disease, Hypertension How is presenting disease/condition affected by chronic disease/condition?: exacerbated by Evaluation data The following diagnostics were reviewed and interpreted by me:: radiology exam(s) Lab and/or radiology exams considered but not ordered:: None Interpretation Summary: RADIOLOGY Shoulder X-Ray: FINDINGS: Prominent osteopenia. Moderate narrowing glenohumeral joint No shoulder fracture or dislocation IMPRESSION: No shoulder fracture or dislocation Forearm X-Ray: FINDINGS: Severe osteopenia No acute fracture No dislocation No foreign body IMPRESSION: No acute fracture Ribs X-Ray: FINDINGS: Severe bilateral pulmonary fibrosis No pneumothorax Ectatic thoracic aorta Severe osteopenia No acute rib fractures IMPRESSION: Severe pulmonary fibrosis No pneumothorax No acute rib fractures Head CT: Findings: No significant ventricular enlargement. Intra-axial or extra-axial hemorrhage density is not seen. No mass effect or midline shift Basal cisterns are not remarkable. Fourth ventricle is midline. Cranial vault intact. 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 4 mm anterolisthesis C2 on C3, likely related to advanced degenerative disc disease C3-C4, C4-C5, C5-C6, C6-C7 C1 exhibit satisfactory relationship to the odontoid. No acute cervical vertebral body fracture seen. Alignment posterior spinous processes satisfactory. Impression: No acute cervical fracture. Possible 11 mm cavitary lesion in the right upper lobe with adjacent parenchymal disease. Recommend PA and lateral AP lordotic chest follow-up Medications / Prescriptions Medications or Prescriptions considered but not ordered:: None Medication administrations:: Medication Administration History Discontinued Medications Diphtheria/Tetanus/Acell Pertussis (Diphth,Pertuss(Acell),Tet Vac 0.5 Ml Syr- Adult) 0.5 ml IMi .ONCE ONE Stop: 07/23/24 19:30 Last Admin: 07/23/24 20:08 Dose: 0.5 ml Documented By: MF See above if any Consultations Consultation(s) initiated? (list below): No Diagnosis Fall Differential Diagnosis: syncope, dislocation of shoulder region, fracture of wrist, compression fracture and concussion without loss of consciousness Most likely diagnosis given after review of the tests above:: Fall, Rib pain, Skin tear, Pulmonary fibrosis, Head trauma, Degenerative Disc Disease of the neck Admission Indicated Admission indicated?: not indicated Explain why admission is indicated or not indicated:: Patient does not meet admission criteria Admission Request Was there a request for admission?: No Disposition Plan Disposition Plan: Discharge Discharge Attestation Discharge Attestation: The patient and all family members were given an opportunity to ask questions and understood the discharge instructions. Discharge instructions specifically effects, indications for sooner follow up or return to the emergency department, and the expected course of current diagnosis. Patient condition: Stable Discharge Plan Plan Patient Disposition: HOME (Self Care) Prescriptions/Referrals Prescriptions/Med Rec: No Action metoprolol succinate [Toprol XL] 100 MG tablet extended release 24 hr 100 mg PO QDAY Qty: 0 aspirin 81 mg Tablet,Delayed Release (Dr/Ec) 81 mg PO QDAY Qty: 0 carbidopa-levodopa 25-100 mg Tablet 1 tab PO TID Qty: 0 doxycycline monohydrate 100 mg capsule 100 mg PO BID Qty: 14 0RF cefuroxime axetil 500 mg tablet 500 mg PO BID Qty: 14 0RF albuterol sulfate 90 mcg/actuation HFA aerosol inhaler 1 inh inhalation QID PRN (Reason: shortness of breath or wheezing) Qty: 8.5 0RF doxycycline hyclate 100 mg capsule 100 mg PO BID Qty: 14 0RF Referrals: Paul Powers FNP [Primary Care Provider] - In 1 week Problem List Clinical Impression: Head trauma, Skin tear, Pulmonary fibrosis, Fall, Rib pain, Degenerative disc disease, cervical Patient/Caregiver Discharge Instructions Discharge Activity: activity as tolerated Education Materials: ED Head Injury (Adult) Print Language: Maltese Stand Alone Forms: [employer] Award Info., Patient Portal Info Letter
--- NOTE | 2024-07-23 19:32 | EKG_ITS ---
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: : 1935 Requested By: Radha Gay Order Number: [id number] Reading MD: Radha Gay Measurements Intervals [place] Rate: 77 P: 42 SD: 195 QRS: -50 QRSD: 105 T: 25 QT: 362 QTc: 412 Interpretive Statements SINUS RHYTHM LEFT AXIS DEVIATION [QRS AXIS < -30] LOW QRS VOLTAGE IN PRECORDIAL LEADS [QRS DEFLECTION < 1.0 mV IN CHEST LEADS] ANTEROSEPTAL MYOCARDIAL INFARCTION , OF INDETERMINATE AGE [40+ ms Q WAVE IN V1-V4] Compared to ECG 03/23/2024 11:44:51 Low QRS voltage now present Myocardial infarct finding now present Ventricular premature complex(es) no longer present T-wave abnormality no longer present /store/[id number]
[2024-07-23] MEDS: DIPHTH,PERTUSS(ACELL),TET VAC 0.5 ML SYR- ADULT IMi (20:08)
[2024-07-23 20:31] LABS: Collection Type, Urine Clean Catch
[2024-07-23 20:37] LABS: Basophils # (Auto) 0.1 Thou/mm3 (0.0-0.2); Basophils % (Auto) 1 % (0-2.5); Eosinophils # (Auto) 0.4 Thou/mm3 (0.0-0.5); Eosinophils % (Auto) 4 % (0-10); Hematocrit 36.6 % (36.0-46.0); Immature Granulocytes % (Auto) 1 % (0-0); Immature Granulocytes Auto 0.07 Thou/mm3 (0.00-0.00); Lymphocytes # (Auto) 1.5 Thou/mm3 (1.0-4.8); Lymphocytes % (Auto) 15 % (10-50); Mean Corpuscular HGB Conc 32.8 g/dl (31.0-37.0); Mean Corpuscular Hemoglobin 29.3 pg (25.0-35.0); Mean Corpuscular Volume 90 fL (80-100); Monocytes # (Auto) 0.7 Thou/mm3 (0.0-0.8); Monocytes % (Auto) 7 % (0-12); Neutrophils % (Auto) 73 % (37-80); Nucleated Red Blood Cell % 0 /100 WBC (0); Platelet Count 236 Thou/mm3 (140-440); RDW Standard Deviation 48.6 fL (36.4-46.3); Red Blood Count 4.09 Miln/mm3 (4.00-5.20); White Blood Count 9.7 Thou/mm3 (3.6-11.0)
[2024-07-23 20:40] LABS: Bacteria,Urine 3+; Bilirubin,Urine Negative (Negative); Blood,Urine Negative (Negative); Clarity,Urine Turbid (Clear/Hazy); Color,Urine Lt-Yellow (Lt Yel-Yel); Glucose, Urine Negative (Negative); Ketones,Urine Negative (Negative); Leukocyte Esterase,Urine Positive (Negative); Nitrite,Urine Positive (Negative); Protein,Urine Negative (Neg - Trace); RBC,Urine 5 /hpf (0-3); Specific Gravity,Urine 1.018 (1.001-1.035); Squamous Epithelial Cell,Urine 7 /hpf (0-5); Urobilinogen,Urine Negative mg/dL (0.0-1.0); WBC,Urine 52 /hpf (0-5)
[2024-07-23 20:41] LABS: Culture Indicated,Urine Yes
[2024-07-23 20:47] VITALS: BP 191/78; PULSE 75; RESP 20; TEMP 36.3; O2SAT 96
[2024-07-23 20:55] LABS: Alanine Aminotransferase < 7 U/L (10-49); Albumin, Serum 4.3 gm/dL (3.4-4.8); Albumin/Globulin Ratio 1.8 (1.2-2.2); Alkaline Phosphatase 57 U/L (46-116); Anion Gap 9 (7-16); Aspartate Amino Transferase 10 U/L (0-34); BUN/Creatinine Ratio 17 Ratio (12-20); Bilirubin,Total 0.4 mg/dL (0.3-1.2); Blood Urea Nitrogen 17 mg/dL (9-23); Calcium 9.8 mg/dL (8.3-10.6); Calcium (Corrected) 9.8 mg/dL (8.5-10.1); Carbon Dioxide 25.5 mMol/L (20.0-31.0); Chloride 102 mMol/L (98-107); Creatine Kinase 34 U/L (34-171); Globulin 2.4 gm/dL (2.3-3.5); Glucose 101 mg/dL (74-106); Osmolality,Calculated 273 (275-295); Potassium 4.3 mMol/L (3.4-5.1); Sodium 136 mMol/L (136-145); Total Protein 6.7 gm/dL (5.7-8.2); Troponin I < 0.020 ng/mL (0.0-0.045); eGFR 54 See Note
[2024-07-23 21:50] VITALS: BP 168/78; PULSE 80; RESP 18
== END 2024-07-23 21:50 | disposition home or self-care (01) ==
PROVIDERS: Emergency Provider Emergency Medicine
DX: S01.81XA Laceration without foreign body of other part of head, initial encounter (principal); S51.812A Laceration without foreign body of left forearm, initial encounter; W18.30XA Fall on same level, unspecified, initial encounter; J84.10 Pulmonary fibrosis, unspecified; M85.822 Other specified disorders of bone density and structure, left upper arm; M50.30 Other cervical disc degeneration, unspecified cervical region; G20.A1 Parkinson's disease without dyskinesia, without mention of fluctuations; I10 Essential (primary) hypertension; S29.9XXA Unspecified injury of thorax, initial encounter
CPT/HCPCS: 36415; 70450; 71101; 72125; 73030; 73090; 80053; 81001; 82550; 84484; 85025; 87077; 87086; 87186; 90471; 90715; 93005; 99284

== ENCOUNTER 2024-07-27 16:51 | Inpatient (IN) | payer MEDICARE, SELFPAY ==
[2024-07-27] VITALS (12 sets, daily range): BP systolic 146–174; BP diastolic 55–80; PULSE 70–79; RESP 16–28; TEMP 36.4–36.6; O2SAT 91–95; BMI 16.6; BMI 16.3
--- NOTE | 2024-07-27 18:05 | PD.EDFALL ---
ED Fall Injury RME/HPI General Chief Complaint: Fall Stated Complaint: FALL Time Seen by Provider: 07/27/24 18:06 Arrival date/time: 07/27/24 16:51 RME / HPI RME / HPI Narrative: This section includes all my notes and documentations, including HPI, PE, and ED course. Blas Mcarthur MD HPI: 88 y/o female with Hx of Parkinson's and Degenerative Disc Disease BIBA from independent living facility c/o headache and tailbone pain s/p fall x approximately 24 hours ago. Patient does not remember how or why she fell. Daughter was not able to get in contact with her mother so she went over to check on patient. Daughter found patient on the floor. Patient was on the floor for 24 hours. Uncertain by her head injury. Uncertain about syncope. Currently, patient reports severe pain in the tailbone region. With any movement, including sitting, the pain is unbearable. No neck pain or back pain. No chest pain or abdominal pain. No pain in the limbs. No other complaints. ROS: All negative except as documented in HPI. Physical Exam: General: Alert and oriented. No acute distress wearing still. Eyes: Conjunctivae and lids clear. EOMI. PERRL. ENT: No signs of head trauma. Neck: Supple. No tenderness. Heart: RRR. Lungs: No respiratory distress. Good air movement. No rhonchi, wheezing, rales. Chest: No tenderness. Abdomen: Soft and nontender. Normal bowel sounds. No distension. No rebound or guarding. Back: Severe tenderness in the sacral region. Legs: No clubbing, cyanosis, edema. Skin: Warm and dry. Neuro: Alert and oriented X 3. Cranial Nerves II-XII grossly intact. No peripheral motor deficits. Musculoskeletal: All major joints and bones are not tender with no limited ROM. I reviewed EMS notes. I reviewed all diagnostic test results: My interpretation of the EKG is: Sinus rhythm (71 bpm) with nonspecific ST-T changes. My interpretation of the chest x-ray is: NAD. My review of the Head/Brain CT report is: NAD. My review of the Facial Bones CT report is: NAD. My review of the C-Spine CT report is: NAD. My review of the T-Spine CT report is: No fracture. My review of the L-Spine CT report is: Sacral fractures. My review of the Chest/Abdomen/Pelvis CT report is: NAD. Blood tests and urine tests unremarkable. Covid/Influenza: Negative. At this point, diagnoses include: Intractable pain, Fall, Syncope, Sacral Fractures, unsafe disposition at home. Treatment here included: Zofran 4 mg, IV fluid. I discussed the case with our hospitalist. About the presentation and exam and diagnostics and treatments here. And need of further care in the hospital. Will accept the patient. Blas Mcarthur MD Related Data Home Medications ?Medication ?Instructions ?Recorded ?Confirmed carbidopa 25 mg-levodopa 100 mg 1 tab PO TID #0 tabs 03/01/17 07/27/24 tablet metoprolol succinate 100 mg 100 mg PO QDAY ##0 03/01/17 07/27/24 tablet,extended release 24 hr (Toprol XL) losartan 25 mg tablet 25 mg PO DAILY 07/27/24 07/28/24 mirtazapine 7.5 mg tablet 7.5 mg PO Q12H 07/27/24 07/28/24 prednisone 10 mg tablet 10 mg PO Q12H 07/27/24 07/28/24 Previous Rx's ?Medication ?Instructions ?Recorded doxycycline hyclate 100 mg capsule 100 mg PO BID #14 caps 06/10/24 Allergies Allergy/AdvReac Type Severity Reaction Status Date / Time bee venom protein (honey bee) Allergy Verified 06/10/24 16:40 Review of Systems Review of Systems Systems Reviewed: All systems reviewed, normal except as documented Past Medical History Past Medical History NEUROLOGIC: Positive Neurological Disorders and Parkinson's Disease CARDIAC: Positive Cardiac Disorders RESPIRATORY: Positive Pulmonary Fibrosis MUSCULOSKELETAL: Positive Degenerative Disk Disease (Cervical) Surgical History SURGICAL: Positive Tonsillectomy and Hysterectomy Social History SMOKING STATUS: Former smoker ED Exam Narrative Physical exam: Refer to HPI above Course Course Course Narrative: CXR is ordered for determining the etiology of shortness of breath. Quality Measures none Orders Category Date Time Status Patient Condition Routine Admission 07/27/24 22:[address] in Observation Status Routine Admission 07/27/24 22:08 Active Bedrest NOW Care 07/27/24 22:09 Active Bedside Influenza A&B Antigen Test NOW Care 07/27/24 18:14 Completed COVID-19 Screening Questionnaire NOW Care 07/27/24 21:32 Completed Decision to Admit X1 Care 07/27/24 21:32 Completed EKG (ED ONLY) *Do not use* NOW Care 07/27/24 18:15 Completed Intake and Output QSHIFT Care 07/27/24 22:15 Ordered Intake and Output QSHIFT Care 07/28/24 22:15 Ordered Miscellaneous Nursing Order NOW Care 07/27/24 22:13 Active Notify provider NEEDED Care 07/27/24 22:08 Active Nurse Swallow Screen X1 Care 07/27/24 22:13 Completed Saline [Insert IV] NOW Care 07/27/24 18:14 Active Straight [In and Out Catheter] X1 Care 07/27/24 18:14 Completed Referral Physical Therapy Routine Cons 07/27/24 22:56 Active Referral Wound Care Routine Cons 07/27/24 23:05 Active Diet Regular Diet 07/28/[address] cervical spine wo con Stat Exams 07/27/24 18:[address] chest abdomen pelvis wo Stat Exams 07/27/24 18:[address] facial bones wo con Stat Exams 07/27/24 18:[address] head/brain wo con Stat Exams 07/27/24 18:[address] lumbar spine wo con Stat Exams 07/27/24 18:[address] thoracic spine wo con Stat Exams 07/27/24 18:16 Completed EKG (ED Only) Stat Exams 07/27/24 18:15 Draft XR chest 1V portable Stat Exams 07/27/24 18:15 Completed BNP [B-Type Natriuretic Peptide] Stat Lab 07/27/24 18:30 Completed Beta Hydroxybutyrate Stat Lab 07/27/24 18:30 Completed Bilirubin,Direct Stat Lab 07/27/24 18:30 Completed Blood Culture (Lab) Stat Lab 07/27/24 18:48 Results CBC AM DRAW Lab 07/28/24 04:55 Completed CBC AM DRAW Lab 07/29/24 05:00 Ordered CBC AM DRAW Lab 07/30/24 05:00 Ordered CBC Stat Lab 07/27/24 18:30 Completed CK [Creatine Kinase] Stat Lab 07/27/24 18:30 Completed CMP [Comprehensive Metabolic Panel] Stat Lab 07/27/24 18:30 Completed COVID-19 Antigen (In-House) Stat Lab 07/27/24 18:30 Completed CRP [C-Reactive Protein] Stat Lab 07/27/24 18:30 Completed Comprehensive Metabolic Panel AM DRAW Lab 07/28/24 04:55 Completed Comprehensive Metabolic Panel AM DRAW Lab 07/29/24 05:00 Ordered Comprehensive Metabolic Panel AM DRAW Lab 07/30/24 05:00 Ordered ESR [Sed Rate (ESR)] Stat Lab 07/27/24 18:30 Completed Free T4 (Free Thyroxine) Stat Lab 07/27/24 18:30 Completed Lactate (Lactic Acid) Stat Lab 07/27/24 18:30 Completed MRSA Nasal Screen Routine Lab 07/28/24 06:10 Received Magnesium AM DRAW Lab 07/28/24 04:55 Completed Magnesium AM DRAW Lab 07/29/24 05:00 Ordered Magnesium AM DRAW Lab 07/30/24 05:00 Ordered Magnesium Stat Lab 07/27/24 18:30 Completed PT [Prothrombin Time with INR] Stat Lab 07/27/24 18:30 Completed PTT [Partial Thromboplastin Time] Stat Lab 07/27/24 18:30 Completed Procalcitonin Stat Lab 07/27/24 18:30 Completed TSH [Thyroid Stimulating Hormone] Stat Lab 07/27/24 18:30 Completed Troponin I Stat Lab 07/27/24 18:30 Completed UA, C/S IF [Urinalysis, C/S if Indicated] Stat Lab 07/27/24 18:55 Completed VBG [Venous Blood Gas] Stat Lab 07/27/24 18:30 Completed Acetaminophen Tab [Tylenol Tab] Med 07/27/24 22:08 Discontinued 650 mg PO Q6H PRN Acetaminophen Tab [Tylenol Tab] Med 07/27/24 22:50 Discontinued 650 mg PO Q6HR PRN Acetaminophen Tab [Tylenol Tab] Med 07/27/24 23:08 Active 650 mg PO Q6HR PRN Carbidopa/Levodopa 25/100 mg [Sinemet 25/100] Med 07/28/24 06:00 Active 1 tab PO TID HYDROcodone*/APAP 5/325 [Peak 5/325] Med 07/27/24 22:08 Active 1 tab PO Q4HR PRN Heparin Inj Med 07/28/24 06:00 Active 5,000 unit SC Q8HR Metoprolol Succinate Xl [Toprol Xl] Med 07/28/24 09:00 Active 100 mg PO QDAY Morphine Inj Med 07/27/24 22:08 Active 1 mg IVP Q2H PRN Ondansetron Inj [Zofran Inj] Med 07/27/24 22:08 Active 4 mg IVP Q6H PRN Ondansetron Inj [Zofran Inj] Med 07/27/24 18:14 Discontinued 4 mg IVP X1 ONE Sodium Chloride 0.9% 1000 ml [Ns] 1,000 ml Med 07/27/24 18:14 Discontinued IV 999 mls/hr Code Status Routine Oth 07/27/24 22:08 Ordered Oxygen Delivery PRN RT 07/27/24 22:08 Active Referral Account Development Specialist NOW 07/27/24 22:13 Active Referral Account Development Specialist NOW 07/28/24 00:04 Active Vital Signs Vital signs: Vital Signs Temperature 97.6 F 07/27/24 16:58 Pulse Rate 73 07/27/24 16:58 Respiratory Rate 18 07/27/24 16:58 Blood Pressure 147/71 H 07/27/24 16:58 Pulse Oximetry (%) 93 L 07/27/24 16:58 Oxygen Delivery Method Room Air 07/27/24 16:58 Fall MDM Narrative MDM Narrative:: Scribe Attestation: Opal Anton, am scribing for and in the presence of Dr. Mcarthur. Provider Notation: Although this document has been carefully reviewed, there may still be some phonetic and other typographical errors.? These errors are purely grammatical due to imperfections in the software program and should not be construed in any way to? compromise the substance of the patient's medical care during this visit. 88 y/o female with Hx of Parkinson's and Degenerative Disc Disease BIBA from independent living facility c/o headache and tailbone pain s/p fall x approximately 24 hours ago. Patient does not remember how or why she fell. Daughter was not able to get in contact with her mother so she went over to check on patient. Daughter found patient on the floor. Patient was on the floor for 24 hours. Uncertain by her head injury. Uncertain about syncope. Currently, patient reports severe pain in the tailbone region. With any movement, including sitting, the pain is unbearable. No neck pain or back pain. No chest pain or abdominal pain. No pain in the limbs. No other complaints. Patient data External records reviewed:: [facility] previous records (Reiewed prior ED records from 07/23/24. Patient was seen for Degenerative disc disease, cervical.) and EMS form Clinical information provided by:: patient and EMS Social determinants that could affect healthcare access:: housing (Independent living facility) Patient has the following chronic illnesses:: Parkinson's Disease, Degenerative Disc Disease How is presenting disease/condition affected by chronic disease/condition?: exacerbated by Evaluation data The following diagnostics were reviewed and interpreted by me:: lab results, radiology exam(s) and EKG tracing(s) (My interpretation of the EKG is: Sinus rhythm (71 bpm) with nonspecific ST-T changes. Blas Mcarthur MD) Lab and/or radiology exams considered but not ordered:: None Interpretation Summary: I reviewed all diagnostic test results: My interpretation of the EKG is: Sinus rhythm (71 bpm) with nonspecific ST-T changes. My interpretation of the chest x-ray is: NAD. My review of the Head/Brain CT report is: NAD. My review of the Facial Bones CT report is: NAD. My review of the C-Spine CT report is: NAD. My review of the T-Spine CT report is: No fracture. My review of the L-Spine CT report is: Sacral fractures. My review of the Chest/Abdomen/Pelvis CT report is: NAD. Blood tests and urine tests unremarkable. Covid/Influenza: Negative. Medications / Prescriptions Medications or Prescriptions considered but not ordered:: None Medication administrations:: Medication Administration History Acetaminophen (Acetaminophen 325 Mg Tablet) 650 mg PO Q6HR PRN PRN Reason: Fever >100.4and; Pain 1-3 Stop: 08/26/24 22:49 Hydrocodone Bitart/Acetaminophen (Hydrocodone/Apap 5/325 Tablet) 1 tab PO Q4HR PRN PRN Reason: PAIN SCALE 4-6 (Moderate Stop: 08/01/24 22:07 Carbidopa/Levodopa (Carbidopa/Levodopa 25/100 Mg Tablet) 1 tab PO TID CLARISA Stop: 08/27/24 05:59 Last Admin: 07/28/24 13:35 Dose: 1 tab Documented By: [email or web address] Admin: 07/28/24 06:08 Dose: 1 tab Documented By: CP Heparin Sodium (Porcine) (Heparin Sod Inj 5000 Unit/Ml Vial) 5,000 unit SC Q8HR CLARISA Stop: 08/11/24 05:59 Last Admin: 07/28/24 13:35 Dose: 5,000 unit Documented By: RODERICK Co-signed By: VANDANA Admin: 07/28/24 06:09 Dose: 5,000 unit Documented By: BILL Co-signed By: AYLA Metoprolol Succinate (Metoprolol Succinate Xl 25 Mg Tabcr) 100 mg PO QDAY CLARISA Stop: 08/27/24 08:59 Last Admin: 07/28/24 08:20 Dose: 100 mg Documented By: RODERICK Morphine Sulfate (Morphine Sulf Inj 10 Mg/Ml Vial) 1 mg IVP Q2H PRN PRN Reason: PAIN SCALE 7-10 (Severe Stop: 08/01/24 22:07 Ondansetron HCl (Ondansetron Inj 2 Mg/Ml Inj 2 Ml) 4 mg IVP Q6H PRN; Protocol PRN Reason: NAUSEA OR VOMITING Stop: 08/26/24 22:07 Discontinued Medications Acetaminophen (Acetaminophen 325 Mg Tablet) 650 mg PO Q6H PRN PRN Reason: pain and Fever >100.4 Stop: 08/26/24 22:07 Acetaminophen (Acetaminophen 325 Mg Tablet) 650 mg PO Q6HR PRN PRN Reason: Fever >101; Pain 1-3 Stop: 08/26/24 22:49 Sodium Chloride (Ns) 1,000 mls @ 999 mls/hr IV .Q1H1M ONE Stop: 07/27/24 19:14 Last Infusion: 07/27/24 20:40 Dose: Infused Documented By: Admin: 07/27/24 19:26 Dose: 999 mls/hr Documented By: RAYMUNDO Ondansetron HCl (Ondansetron Inj 2 Mg/Ml Inj 2 Ml) 4 mg IVP X1 ONE; Protocol Stop: 07/27/24 18:15 Last Admin: 07/27/24 19:26 Dose: 4 mg Documented By: RAYMUNDO Zofran 4 mg, IV fluid. Consultations Consultation(s) initiated? (list below): Yes Consultation #1 (Physician, Specialty, Details): I discussed the case with our hospitalist. About the presentation and exam and diagnostics and treatments here. And need of further care in the hospital. Will accept the patient. Diagnosis Fall Differential Diagnosis: syncope, dislocation of shoulder region, compression fracture, concussion with loss of consciousness and concussion without loss of consciousness Most likely diagnosis given after review of the tests above:: Intractable pain, Fall, Syncope, Sacral fracture, Unsafe disposition at home. Admission Indicated Admission indicated?: indicated Explain why admission is indicated or not indicated:: Intractable pain, Fall, Syncope, Sacral fracture, Unsafe disposition at home. Admission Request Was there a request for admission?: Yes Admission Attestation Admission request attestation: Discussed case with [] from Hospitalist service regarding admission. Discussed patients ED course, exam findings, labs, and radiology results. The Hospitalist [agrees,declines] to accept the patient for admission. Disposition Plan Disposition Plan: Admit Discharge Plan Plan Patient Disposition: Admit Acute Care w/in Hospital Problem List Clinical Impression: Intractable pain, Fall, Syncope, Sacral fracture, Feels unsafe at home
--- NOTE | 2024-07-27 18:15 | XR_ITS ---
Examination: CT brain head without contrast. 2-D sagittal coronal reconstructions Date and time of exam:July 27, 2024 1833 hours INDICATIONS: Patient fell today with injury of the head, head pain CTDI: vol (mGy):47 DLP: (mGycm): 1007 Technique: Multiple CT axial sections of the brain have been obtained, 5 mm slice thickness. Contrast has not been administered. 2-D sagittal, coronal reconstructions have been obtained Low dose protocols were performed. One or more of the following dose reduction techniques were used; automated exposure control, adjustment of the mA and/or KV according to patient size, use of iterative reconstruction technique. Findings: No significant ventricular enlargement. 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 No mass effect or midline shift Basal cisterns are not remarkable. Fourth ventricle is midline. Cranial vault intact. Impression: Negative for acute hemorrhage, mass effect or midline shift
--- NOTE | 2024-07-27 18:15 | XR_ITS ---
Examination: AP chest single view Technique one AP portable semiupright chest single view Date and time: July 27, 2024 1818 hours Comparison July 23, 2024 INDICATIONS: Patient fell today with injury to the chest, chest pain FINDINGS: Severe pulmonary fibrosis No pneumothorax Normal heart size Clavicles ribs appear intact IMPRESSION: Severe pulmonary fibrosis No pneumothorax
--- NOTE | 2024-07-27 18:15 | XR_ITS ---
Examination: CT cervical spine without contrast 2-D sagittal reconstructions 2-D coronal reconstructions 3-D reconstructions. Exam date and time:July 27, 2024 1833 hours INDICATIONS: Patient fell today with injury to the neck, neck pain CTDI:vol (mGy) 12.3 DLP: (mGycm) 263 Technique: Multiple 2 mm axial sections of the cervical spine have been obtained. The coronal and sagittal reconstructions have been obtained. 3-D reconstructions have been obtained. Low dose protocols were performed. One or more of the following dose reduction techniques were used; automated exposure control, adjustment of the mA and/or KV according to patient size, use of iterative reconstruction technique. Findings: Axial sections demonstrate intact base of the skull. C1 exhibit satisfactory relationship to the odontoid. No acute cervical vertebral body fracture seen. Alignment posterior spinous processes satisfactory. Impression: No acute cervical fracture.
--- NOTE | 2024-07-27 18:15 | EKG_ITS ---
[facility] Test Date: 2024-07-27 Pat Name: ITZEL SMITH Department: Room: - Gender: Female Hospital Cleaner: : 1935 Requested By: Blas Franklin Order Number: [id number] Reading MD: Blas Franklin Measurements Intervals [place] Rate: 71 P: 27 [place]: 191 QRS: -35 QRSD: 101 T: 19 QT: 368 QTc: 402 Interpretive Statements SINUS RHYTHM LEFT AXIS DEVIATION [QRS AXIS < -30] POSSIBLE ANTERIOR MYOCARDIAL INFARCTION , OF INDETERMINATE AGE [30 ms Q WAVE IN V3/V4, OR R < 0.2 mV IN V4] Compared to ECG 07/23/2024 20:38:10 No significant changes /store/S0/[id number]/ecg/[id number].pdf
--- NOTE | 2024-07-27 18:15 | XR_ITS ---
Examination: CT maxillofacial, without intravenous contrast. 2-D sagittal reconstructions. 3-D reconstructions. Date and time of exam:July 27, 2024 1833 hours INDICATIONS: Patient fell today with injury to the face, facial pain CTDI: vol (mGy):12.4 DLP: (mGycm):264 Technique: Multiple axial images of maxillofacial region, 3.0 mm slice thickness. 2-D sagittal and coronal reconstructions. 3-D reconstructions. Low dose protocols were performed. One or more of the following dose reduction techniques were used; automated exposure control, adjustment of the mA and/or KV according to patient size, use of iterative reconstruction technique. Findings: Frontal bone frontal sinuses intact Orbital rims intact No nasal bone fracture No depression zygomatic arches The optic globes are intact Pterygoid plates maxilla and the mandible intact IMPRESSION: No acute facial fracture.
--- NOTE | 2024-07-27 18:16 | XR_ITS ---
Examination: CT chest, without intravenous contrast. CT abdomen, without intravenous contrast. CT pelvis, without intravenous contrast. 2-D sagittal and coronal reconstructions. 3-D reconstructions. Date and time of exam:July 27, 2024, 1912 hours INDICATIONS: Patient fell today with injury to the chest and abdomen, chest pain abdomen pain CTDI vol (mgy) 403 DLP (MGycm)250 Technique: Multiple CT images, 3.0 mm slice thickness, obtained chest, abdomen, pelvis, with the high-resolution 64 slice scanner.. Sagittal and coronal 2-D reconstructions are obtained. 3-D reconstructions Low dose protocols were performed. One or more of the following dose reduction techniques were used; automated exposure control, adjustment of the mA and/or KV according to patient size, use of iterative reconstruction technique. Findings: Aorta pulmonary arteries appear intact Severe pulmonary fibrosis No pneumothorax The manubrium and body of the sternum intact No acute thoracic or lumbar fracture old appearing fracture right fifth rib anteriorly No visualized liver or splenic or renal laceration Small gallstones Abdominal aorta intact, no free blood in the abdomen or pelvis Normal appendix Negative for pneumoperitoneum Urinary bladder intact Hips intact There are fractures of the third and fourth sacral segments which on this study appear old, IMPRESSION: Aorta pulmonary arteries intact No hemopericardium, pneumothorax pulmonary contusion or hemothorax No abdominal parenchymal laceration Abdominal aorta intact no free blood in the abdomen or pelvis
--- NOTE | 2024-07-27 18:16 | XR_ITS ---
Examination: CT thoracic spine, without contrast. 2-D sagittal reconstructions. 2-D coronal reconstructions. 3-D reconstructions. Date and time of exam:July 27, 2024 9006 hours INDICATIONS: Patient fell today with injury to the upper back, upper back pain CTDI: vol (mGy):10.7 DLP: (mGycm):310 Technique: Multiple 1.25 mm axial sections of the thoracic spine without intravenous contrast have been obtained. 2-D sagittal and coronal reconstructions have been obtained. 3-D reconstructions have been obtained. Low dose protocols were performed. One or more of the following dose reduction techniques were used; automated exposure control, adjustment of the mA and/or KV according to patient size, use of iterative reconstruction technique. Findings: Severe osteopenia Mild chronic osteoporotic compression T4 No acute thoracic fracture Diffuse moderate disc narrowing Impression : No acute thoracic fracture
--- NOTE | 2024-07-27 18:16 | XR_ITS ---
Examination: CT lumbar spine, without contrast. 2-D sagittal reconstructions. 2-D coronal reconstructions. 3-D reconstructions. Date and time of exam:July 27, 2024 1906 hours INDICATIONS: Patient fell today with injury to lower back, lower back pain CTDI: vol (mGy):12 DLP: (mGycm):329 Technique: Multiple 1.25 mm axial sections of the lumbar spine intravenous contrast have been obtained. 2-D sagittal and coronal reconstructions have been obtained. 3-D reconstructions have been obtained. Low dose protocols were performed. One or more of the following dose reduction techniques were used; automated exposure control, adjustment of the mA and/or KV according to patient size, use of iterative reconstruction technique. Findings: Severe osteopenia Old depression inferior endplate L1 No acute lumbar vertebral body compression fracture Acute appearing fractures third and fourth sacral segments, sagittal image 72 axial image 149 IMPRESSION: Acute-appearing sacral fractures, third and fourth sacral segments with angulation at the fracture sites
[2024-07-27 18:49] LABS: Base Excess, Venous 4 (-3-3); O2 Saturation, Venous 61 % (96-97); PCO2, Venous 46 mmHg (36-56); PO2, Venous 33 mmHg (15-58); pH, Venous 7.41 (7.33-7.66)
[2024-07-27 18:50] LABS: Lactate (Lactic Acid) 1.6 mMol/L (0.4-2.0)
[2024-07-27 18:51] LABS: Basophils # (Auto) 0.1 Thou/mm3 (0.0-0.2); Basophils % (Auto) 1 % (0-2.5); Eosinophils # (Auto) 0.5 Thou/mm3 (0.0-0.5); Eosinophils % (Auto) 5 % (0-10); Hematocrit 37.8 % (36.0-46.0); Hemoglobin 12.8 g/dL (12.0-16.0); Immature Granulocytes % (Auto) 1 % (0-0); Immature Granulocytes Auto 0.11 Thou/mm3 (0.00-0.00); Lymphocytes # (Auto) 1.3 Thou/mm3 (1.0-4.8); Lymphocytes % (Auto) 13 % (10-50); Mean Corpuscular HGB Conc 33.9 g/dl (31.0-37.0); Mean Corpuscular Hemoglobin 29.2 pg (25.0-35.0); Mean Corpuscular Volume 86 fL (80-100); Monocytes # (Auto) 0.9 Thou/mm3 (0.0-0.8); Monocytes % (Auto) 9 % (0-12); Neutrophils # (Auto) 7.1 Thou/mm3 (1.8-7.7); Neutrophils % (Auto) 71 % (37-80); Nucleated Red Blood Cell % 0 /100 WBC (0); Platelet Count 214 Thou/mm3 (140-440); RDW Standard Deviation 47.4 fL (36.4-46.3); Red Blood Count 4.39 Miln/mm3 (4.00-5.20); White Blood Count 9.9 Thou/mm3 (3.6-11.0)
[2024-07-27 18:54] LABS: Beta Hydroxybutyrate 0.2 mmol/L (<0.6)
[2024-07-27 18:58] LABS: Collection Type, Urine Clean Catch; Squamous Epithelial Cell,Urine 0 /hpf (0-5)
[2024-07-27 19:01] LABS: Sed Rate (ESR) 16 mm/hr (0-30)
[2024-07-27 19:13] LABS: Bilirubin,Urine Negative (Negative); Blood,Urine Negative (Negative); Clarity,Urine Clear (Clear/Hazy); Color,Urine Lt-Yellow (Lt Yel-Yel); Culture Indicated,Urine Not Indicated; Glucose, Urine Negative (Negative); Ketones,Urine Negative (Negative); Leukocyte Esterase,Urine Negative (Negative); Nitrite,Urine Negative (Negative); Protein,Urine Negative (Neg - Trace); RBC,Urine 1 /hpf (0-3); Specific Gravity,Urine 1.013 (1.001-1.035); Urobilinogen,Urine Negative mg/dL (0.0-1.0); WBC,Urine 1 /hpf (0-5)
[2024-07-27 19:18] LABS: INR 1.1 (0.9-1.3); Partial Thromboplastin Time 26.8 Seconds (22.0-36.0); Prothrombin Time 11.9 Seconds (9.0-12.2)
[2024-07-27 19:21] LABS: B-Type Natriuretic Peptide 151 pg/mL (0-100)
[2024-07-27] MEDS: ONDANSETRON INJ 2 MG/ML INJ 2 ML 4 MG IVP (19:26)
[2024-07-27] MEDS: SODIUM CHLORIDE 0.9% 1000 ML 1,000 ML 999 ML IV (19:26)
[2024-07-27 19:33] LABS: Alanine Aminotransferase 11 U/L (10-49); Albumin/Globulin Ratio 1.5 (1.2-2.2); Alkaline Phosphatase 58 U/L (46-116); Anion Gap 8 (7-16); Aspartate Amino Transferase 21 U/L (0-34); BUN/Creatinine Ratio 17 Ratio (12-20); Bilirubin,Direct 0.2 mg/dL (0.0-0.3); Bilirubin,Total 0.6 mg/dL (0.3-1.2); Blood Urea Nitrogen 17 mg/dL (9-23); C-Reactive Protein 4.6 mg/dL (0.0-0.9); Calcium 9.4 mg/dL (8.3-10.6); Calcium (Corrected) 9.4 mg/dL (8.5-10.1); Carbon Dioxide 28.9 mMol/L (20.0-31.0); Chloride 103 mMol/L (98-107); Creatine Kinase 128 U/L (34-171); Estimated Creatinine Clearance 28.7 mL/min (>60); Free T4 (Free Thyroxine) 1.18 ng/dL (0.89-1.76); Globulin 2.6 gm/dL (2.3-3.5); Glucose 93 mg/dL (74-106); Magnesium 2.1 mg/dL (1.6-2.6); Osmolality,Calculated 280 (275-295); Procalcitonin 0.13 ng/ml (0.0-0.49); Sodium 140 mMol/L (136-145); Thyroid Stimulating Hormone 3.72 uIU/mL (0.55-4.78); Total Protein 6.6 gm/dL (5.7-8.2); Troponin I < 0.020 ng/mL (0.0-0.045); eGFR 54 See Note
[2024-07-27 19:39] LABS: COVID-19 Antigen (In-House) Negative (Negative)
--- NOTE | 2024-07-27 22:15 | ESHP_ITS ---
<Statement entered by Jamee Cordoba MD - 07/28/24 07:46> I Jamee Cordoba MD reviewed the note and agree with the resident's assessment & plan with exceptions as below. I have personally reviewed labs, imaging, home meds/prior records, examined the patient, formulated and discussed management plan with the IM team. An 88-year-old female with history of Parkinson's disease and pulmonary fibrosis Had a fall at home with sacral fracture. Patient noted to be hypotensive, family is unable to take care of her at home. Patient does not have any safe discharge disposition, will place in observation for PT evaluation and placement in a senior care. Will continue providing supportive care and optimal pain control. Documentation for date of: 07/27/24 HPI History of Present Illness Chief complaint: ground level fall History of present illness: 88-year-old female with past medical history of hypertension, Parkinson disease, and recurrent falls admitted to the hospital on 07/27/2024 after come to the ED with complaint of a ground-level fall. Patient was accompanied by daughter who was at bedside and stated patient had a fall yesterday night. Patient stated that she was trying to walk for a walker and then next thing she knows she was on the floor. She states she did not lose consciousness or feel any chest pain, shortness of breath, or palpitations at this time. She does mention that she has memory difficulties. Patient lives alone in her house and is able to do her own laundry and some daily activities, but patient's daughter stated that recently she has been deteriorating a little bit more with more weakness and her gait has been more shuffling. Patient was also seen in the ED on the of this month for another ground-level fall and she was discharged home. Patient denies having any other symptoms other than just pain in her sacral region. She denies having any chest pain, headaches, abdominal pain, diarrhea, burning sensation with urination, or blood in the stool. Patient's daughter stated that she had interest on having the patient move in with her, but that this time she was not able to do that therefore they wanted to know if there were other options at this time. Explained to the patient and daughter that option of intermediate facility at this time could be feasible given that we would have our team find out if she qualifies. ED course: Initially came in mildly hypertensive and afebrile. Initial labs were unremarkable. Initial imaging included multiple imaging studies with in summary did not show any intracranial bleed or facial fractures, but did show 3rd and 4th sacral fractures. At this time patient is not safe to be discharged due to disposition. PMH: As above Surgical Hx: Hysterectomy Medications: Carbidopa levodopa, mirtazapine, losartan Social Hx: Denies any smoking, drugs, alcohol Review of Systems Review of Systems Systems Reviewed: All systems reviewed, normal except as documented Past Medical History Past Medical History NEUROLOGIC: Positive Neurological Disorders and Parkinson's Disease CARDIAC: Positive Cardiac Disorders RESPIRATORY: Positive Pulmonary Fibrosis MUSCULOSKELETAL: Positive Degenerative Disk Disease (Cervical) Surgical History SURGICAL: Positive Tonsillectomy and Hysterectomy Social History SMOKING STATUS: Former smoker Exam Vital Signs Temp Pulse Resp BP Pulse Ox O2 Del Method 97.9 F 73 25 H 164/70 H 93 L Room Air 07/27/24 17:35 07/27/24 20:30 07/27/24 20:30 07/27/24 20:30 07/27/24 20:30 07/27/24 17:35 Narrative Exam General: A/O x3, no acute distress, frail elderly Eyes: PERRL, EOMI. Anicteric, vision grossly intact. Ears: No ear pain, no ear discharge, Hearing grossly intact. Nose: No nasal discharge. Mouth/Throat: Moist mucous membranes, no redness, no lesions. Neck: Neck supple, non-tender, no cervical lymphadenopathy. Lungs: Clear MARYSE to auscultation and percussion, No accessory muscle use. Cardio: Normal S1/S2, regular rhythm, no murmurs, no JVD Abdomen: Soft, non-tender, no palpable masses, peristalsis present, no guarding or rebound. Extremities: Symmetrical, no significant deformities, no peripheral edema , non-tender, peripheral pulses presents. Skin: No rashes, no lesions, warm to touch. Skin tear in L forearm Neuro: No focal neurological deficits. motor and sensory intact Psych: Cooperative, appropriate mood and effect. Results: Labs 07/27/24 18:30 07/27/24 18:30 Labs: Short CBC 07/27/24 Range/Units 18:30 WBC 9.9 (3.6-11.0) Thou/mm3 Hgb 12.8 (12.0-16.0) g/dL Hct 37.8 (36.0-46.0) % Plt Count 214 (140-440) Thou/mm3 BMP 07/27/24 18:30 Sodium 140 Potassium 4.0 Chloride 103 Carbon Dioxide 28.9 BUN 17 Creatinine 1.0 Glucose 93 Calcium 9.4 Cardiac Enzymes 07/27/24 Range/Units 18:30 Total Creatine Kinase 128 D (34-171) U/L Troponin I < 0.020 (0.0-0.045) ng/mL Liver Function 07/27/24 Range/Units 18:30 Total Bilirubin 0.6 (0.3-1.2) mg/dL Direct Bilirubin 0.2 (0.0-0.3) mg/dL AST 21 (0-34) U/L ALT 11 (10-49) U/L Alkaline Phosphatase 58 (46-116) U/L Albumin 4.0 (3.4-4.8) gm/dL Urine 07/27/24 Range/Units 18:55 Urine Color Lt-Yellow (Lt Yel-Yel) Urine Clarity Clear (Clear/Hazy) Urine pH 7.0 (5.0-7.0) Ur Specific [place] 1.013 (1.001-1.035) Urine Protein Negative (Neg - Trace) Urine Glucose (UA) Negative (Negative) ABG Interpretation ABG results: 07/27/24 18:30 VBG pH 7.41 VBG pCO2 46 VBG pO2 33 VBG Base Excess 4 H Quality Measures Quality Measures none Advance care planning discussed with:: patient and child Medications Home Medications and Allergies Home Medications ?Medication ?Instructions ?Recorded ?Confirmed ?Type aspirin 81 mg tablet,delayed 81 mg PO QDAY ##0 8 02/11/21 History release carbidopa 25 mg-levodopa 100 mg 1 tab PO TID #0 tabs 0 03/01/17 02/11/21 History tablet metoprolol succinate 100 mg 100 mg PO QDAY ##0 8 02/11/21 History tablet,extended release 24 hr (Toprol XL) Allergies Allergy/AdvReac Type Severity Reaction Status Date / Time bee venom protein (honey bee) Allergy Verified 06/10/24 16:40 Visit Medications Acetaminophen (Acetaminophen 325 Mg Tablet) 650 mg PO Q6H PRN PRN Reason: pain and Fever >100.4 Stop: 08/26/24 22:07 Hydrocodone Bitart/Acetaminophen (Hydrocodone/Apap 5/325 Tablet) 1 tab PO Q4HR PRN PRN Reason: PAIN SCALE 4-6 (Moderate Stop: 08/01/24 22:07 Heparin Sodium (Porcine) (Heparin Sod Inj 5000 Unit/Ml Vial) 5,000 unit SC Q8HR CLARISA Stop: 08/11/24 05:59 Morphine Sulfate (Morphine Sulf Inj 10 Mg/Ml Vial) 1 mg IVP Q2H PRN PRN Reason: PAIN SCALE 7-10 (Severe Stop: 08/01/24 22:07 Ondansetron HCl (Ondansetron Inj 2 Mg/Ml Inj 2 Ml) 4 mg IVP Q6H PRN; Protocol PRN Reason: NAUSEA OR VOMITING Stop: 08/26/24 22:07 Discontinued Medications Sodium Chloride (Ns) 1,000 mls @ 999 mls/hr IV .Q1H1M ONE Stop: 07/27/24 19:14 Last Infusion: 07/27/24 20:40 Dose: Infused Ondansetron HCl (Ondansetron Inj 2 Mg/Ml Inj 2 Ml) 4 mg IVP X1 ONE; Protocol Stop: 07/27/24 18:15 Last Admin: 07/27/24 19:26 Dose: 4 mg Assessment & Plan Plan 88-year-old female with past medical history of hypertension, Parkinson disease, and recurrent falls admitted to the hospital on 07/27/2024 due to unsafe discharge disposition and sacral fractures. #Unsafe discharge disposition #Sacral fractures, 3rd and 4th #Ground-level fall #Hx of recurrent falls #Hx of Parkinson disease Patient had a fall yesterday night while walking with her walker Patient denies any trauma to the head, but she does not remember quite well what led to her fall. Patient does have a history of Parkinson disease and has been having a shuffling gait as per daughter at bedside. Patient was recently seen in the ED on 07/23/2024 due to another ground-level fall. Abdomen/pelvis CT and lumbar spine CT showed 3rd and 4th sacral fractures. Patient lives alone and was able to do some of her daily activities at home, but after recently she has been having increased weakness and more difficulty with standing up from sitting position and with moving around the house. Plan: Pain management with [place], Tylenol, morphine Physical therapy Referral to social welfare research worker for possible intermediate facility placement as patient is not safe to be discharged back to home. Will restart patient's home medications of carbidopa levodopa once medication consultation is done. Disposition: Patient admitted to med surg due to unsafe discharge disposition. Diet: Regular GI prophylaxis: not indicated DVT prophylaxis: heparin subcu Code: Full Case disclosed with Attending Dr. Adalid Jiang PGY1 Disclaimer: Even though this this note was dictated by speech recognition and even though it was carefully revised there may still be minor errors in burrer operator due to voice recognition software.
[2024-07-28] VITALS (10 sets, daily range): BP systolic 112–160; BP diastolic 48–89; PULSE 65–90; RESP 17–94; TEMP 36.1–37.1; O2SAT 92–99
--- NOTE | 2024-07-28 05:10 | PC.NURSE ---
Unable to complete med rec at this time as daughter left ER with home meds.
[2024-07-28 05:38] LABS: Basophils # (Auto) 0.1 Thou/mm3 (0.0-0.2); Basophils % (Auto) 1 % (0-2.5); Eosinophils # (Auto) 0.7 Thou/mm3 (0.0-0.5); Eosinophils % (Auto) 8 % (0-10); Immature Granulocytes % (Auto) 1 % (0-0); Immature Granulocytes Auto 0.11 Thou/mm3 (0.00-0.00); Lymphocytes # (Auto) 1.2 Thou/mm3 (1.0-4.8); Lymphocytes % (Auto) 13 % (10-50); Mean Corpuscular HGB Conc 33.3 g/dl (31.0-37.0); Mean Corpuscular Hemoglobin 29.1 pg (25.0-35.0); Mean Corpuscular Volume 87 fL (80-100); Monocytes # (Auto) 0.8 Thou/mm3 (0.0-0.8); Monocytes % (Auto) 9 % (0-12); Neutrophils # (Auto) 6.2 Thou/mm3 (1.8-7.7); Neutrophils % (Auto) 68 % (37-80); Nucleated Red Blood Cell % 0 /100 WBC (0); Platelet Count 249 Thou/mm3 (140-440); RDW Standard Deviation 48.9 fL (36.4-46.3); Red Blood Count 3.78 Miln/mm3 (4.00-5.20); White Blood Count 9.2 Thou/mm3 (3.6-11.0)
[2024-07-28 06:05] LABS: Alanine Aminotransferase 8 U/L (10-49); Albumin, Serum 3.4 gm/dL (3.4-4.8); Albumin/Globulin Ratio 1.5 (1.2-2.2); Alkaline Phosphatase 48 U/L (46-116); Anion Gap 8 (7-16); Aspartate Amino Transferase 16 U/L (0-34); BUN/Creatinine Ratio 21 Ratio (12-20); Bilirubin,Total 0.4 mg/dL (0.3-1.2); Blood Urea Nitrogen 19 mg/dL (9-23); Calcium 8.7 mg/dL (8.3-10.6); Calcium (Corrected) 9.2 mg/dL (8.5-10.1); Carbon Dioxide 27.6 mMol/L (20.0-31.0); Chloride 106 mMol/L (98-107); Creatinine (Component) 0.9 mg/dL (0.6-1.3); Estimated Creatinine Clearance 31.3 mL/min (>60); Globulin 2.2 gm/dL (2.3-3.5); Glucose 137 mg/dL (74-106); Magnesium 1.9 mg/dL (1.6-2.6); Osmolality,Calculated 287 (275-295); Potassium 4.1 mMol/L (3.4-5.1); Sodium 142 mMol/L (136-145); Total Protein 5.6 gm/dL (5.7-8.2); eGFR > 60 See Note
[2024-07-28] MEDS: CARBIDOPA/LEVODOPA 25/100 MG TABLET 1 TAB PO ×3 (06:08→21:21)
[2024-07-28] MEDS: HEPARIN SOD INJ 5000 UNIT/ML VIAL SC ×3 (06:09→21:21)
[2024-07-28] MEDS: METOPROLOL SUCCINATE XL 25 MG TABCR 100 MG PO (08:20)
--- NOTE | 2024-07-28 13:32 | ESPR_ITS ---
Documentation for date of: 07/28/24 Subjective Subjective Interval history: Very pleasant patient admitted overnight for recurrent falls. Imaging indicated sacral 3rd-4th acute fracture. Patient pending PT evaluation and pending d/c to nursing facility. Exam Vital Signs Temp Pulse Resp BP Pulse Ox O2 Del Method O2 Flow Rate 98.7 F 76 18 112/48 L 96 Nasal Cannula 2 07/28/24 12:00 07/28/24 13:17 07/28/24 13:17 07/28/24 12:00 07/28/24 12:00 07/28/24 12:00 07/28/24 12:00 Narrative Exam General: A/O x3, no acute distress, frail elderly Eyes: PERRL, EOMI. Anicteric, vision grossly intact. Ears: No ear pain, no ear discharge, Hearing grossly intact. Nose: No nasal discharge. Mouth/Throat: Moist mucous membranes, no redness, no lesions. Neck: Neck supple, non-tender, no cervical lymphadenopathy. Lungs: Clear MARYSE to auscultation and percussion, No accessory muscle use. Cardio: Normal S1/S2, regular rhythm, no murmurs, no JVD Abdomen: Soft, non-tender, no palpable masses, peristalsis present, no guarding or rebound. Extremities: Symmetrical, no significant deformities, no peripheral edema , non-tender, peripheral pulses presents. Skin: No rashes, no lesions, warm to touch. Skin tear in L forearm Neuro: No focal neurological deficits. motor and sensory intact Psych: Cooperative, appropriate mood and effect. Objective Labs 07/29/24 04:53 07/29/24 04:53 Labs: Laboratory Results - last 24 hr 07/27/24 07/27/24 07/28/24 18:30 18:55 04:55 WBC 9.9 9.2 RBC 4.39 3.78 L Hgb 12.8 11.0 L Hct 37.8 33.0 L MCV 86 87 MCH 29.2 29.1 MCHC 33.9 33.3 RDW Std Deviation 47.4 H 48.9 H Plt Count 214 249 D Neut % (Auto) 71 68 Lymph % (Auto) 13 13 [place] % (Auto) 9 9 Eos % (Auto) 5 8 Baso % (Auto) 1 1 Neut # (Auto) 7.1 6.2 Lymph # (Auto) 1.3 1.2 [place] # (Auto) 0.9 H 0.8 Eos # (Auto) 0.5 0.7 H Baso # (Auto) 0.1 0.1 Immature Gran # (Auto) 0.11 H 0.11 H Absolute Nucleated RBC 0.00 0.00 Immature Gran % 1 H 1 H Nucleated RBC % 0 0 ESR 16 PT 11.9 INR 1.1 APTT 26.8 VBG pH 7.41 VBG pCO2 46 VBG pO2 33 VBG O2 Sat (Delia) 61 L VBG Base Excess 4 H Sodium 140 142 Potassium 4.0 4.1 Chloride 103 106 Carbon Dioxide 28.9 27.6 Anion Gap 8 8 BUN 17 19 Creatinine 1.0 0.9 Estim Creat Clear Calc 28.7 L 31.3 L eGFR 54 L > 60 BUN/Creatinine Ratio 17 21 H Glucose 93 137 H Calculated Osmolality 280 287 Lactic Acid 1.6 Calcium 9.4 8.7 Corrected Calcium 9.4 9.2 Magnesium 2.1 1.9 Total Bilirubin 0.6 0.4 Direct Bilirubin 0.2 AST 21 16 ALT 11 8 L Alkaline Phosphatase 58 48 Total Creatine Kinase 128 D Troponin I < 0.020 C-Reactive Prot, Quant 4.6 H B-Natriuretic Peptide 151 H Total Protein 6.6 5.6 L Albumin 4.0 3.4 D Globulin 2.6 2.2 L Albumin/Globulin Ratio 1.5 1.5 Beta-Hydroxybutyrate/Acetoacetate 0.2 Procalcitonin 0.13 TSH 3.72 Free T4 1.18 Ur Collection Type Clean Catch Urine Color Lt-Yellow Urine Clarity Clear Urine pH 7.0 Ur Specific [place] 1.013 Urine Protein Negative Urine Glucose (UA) Negative Urine Ketones Negative Urine Blood Negative Urine Nitrite Negative Urine Bilirubin Negative Urine Urobilinogen (Auto) Negative Ur Leukocyte Esterase Negative Urine RBC 1 Urine WBC 1 Ur Squamous Epith Cells 0 Urine Bacteria None Ur Culture Indicated? Not Indicated SARS-CoV-2 Ag (Rapid) Negative ABG Interpretation ABG results: 07/27/24 18:30 VBG pH 7.41 VBG pCO2 46 VBG pO2 33 VBG Base Excess 4 H Quality Measures Quality Measures none Advance care planning discussed with:: other Assessment & Plan Assessment Current Active Medications: Generic Name Dose Route Start Last Admin Trade Name Freq PRN Reason Stop Dose Admin Acetaminophen 650 mg 07/27/24 23:08 Acetaminophen 325 Mg Tablet PO 08/26/24 22:49 Q6HR PRN Fever >100.4and; Pain 1-3 Hydrocodone Bitart/Acetaminophen 1 tab 07/27/24 22:08 Hydrocodone/Apap 5/325 Tablet PO 08/01/24 22:07 Q4HR PRN PAIN SCALE 4-6 (Moderate Carbidopa/Levodopa 1 tab 07/28/24 06:00 07/28/24 06:08 Carbidopa/Levodopa 25/100 Mg Tablet PO 08/27/24 05:59 1 tab TID CLARISA Administration Heparin Sodium (Porcine) 5,000 unit 07/28/24 06:00 07/28/24 06:09 Heparin Sod Inj 5000 Unit/Ml Vial SC 08/11/24 05:59 5,000 unit Q8HR CLARISA Administration Metoprolol Succinate 100 mg 07/28/24 09:00 07/28/24 08:20 Metoprolol Succinate Xl 25 Mg Tabcr PO 08/27/24 08:59 100 mg QDAY CLARISA Administration Morphine Sulfate 1 mg 07/27/24 22:08 Morphine Sulf Inj 10 Mg/Ml Vial IVP 08/01/24 22:07 Q2H PRN PAIN SCALE 7-10 (Severe Ondansetron HCl 4 mg 07/27/24 22:08 Ondansetron Inj 2 Mg/Ml Inj 2 Ml IVP 08/26/24 22:07 Q6H PRN NAUSEA OR VOMITING Protocol Plan 88-year-old female with past medical history of hypertension, Parkinson disease, and recurrent falls admitted to the hospital on 07/27/2024 due to unsafe discharge disposition and sacral fractures. #Unsafe discharge disposition #Sacral fractures, 3rd and 4th #Ground-level fall #Hx of recurrent falls #Hx of Parkinson disease Patient had a fall yesterday night while walking with her walker Patient denies any trauma to the head, but she does not remember quite well what led to her fall. Patient does have a history of Parkinson disease and has been having a shuffling gait as per daughter at bedside. Patient was recently seen in the ED on 07/23/2024 due to another ground-level fall. Abdomen/pelvis CT and lumbar spine CT showed 3rd and 4th sacral fractures. Patient lives alone and was able to do some of her daily activities at home, but after recently she has been having increased weakness and more difficulty with standing up from sitting position and with moving around the house. Plan: Pain management with [place], Tylenol, morphine Physical therapy Referral to vp digital marketing social media and crm for possible [facility]ci facility placement as patient is not safe to be discharged back to home. Will restart patient's home medications of carbidopa levodopa once medication consultation is done. Disposition: Patient admitted to med surg due to unsafe discharge disposition. Diet: Regular GI prophylaxis: not indicated DVT prophylaxis: heparin subcu Code: Full This patient care was discussed with my attending Dr. Chelsi Merlos MD PGY-2 Disclaimer: Minor errors in geriatric personal care aide may be present since this note was dictated by speech recognition software. Attending Provider Attestation/Addendum [place], Chela Gagnon DO, attest that I was physically present for the monae portions of the service and evaluated the patient with the resident and I reviewed and discussed the case with the resident and agree with the resident's findings and plans of care as documented above Patient seen and evaluated this a.m. She states that her pain is only when she moves. Patient states that she has been having frequent falls at home. She denies any loss of consciousness and states that she had tripped over something the resulting in her fall. Patient is pending physical therapy and will need placement as she is home alone. Will follow-up with physical therapy and vp digital marketing social media and crm. Patient otherwise denies any shortness of breath, chest pain, nausea, vomiting, fevers, chills, abdominal pain, diarrhea or dysuria.
--- NOTE | 2024-07-28 16:15 | PC.SS ---
Vaishali Donovan is 88 year old female admitted to [facility] for Fall. SS conducted bedside contact with the patient to complete initial assessment and to discuss discharge planning.? SW used all precautionary measures to complete initial. Role and reason for the contact was explained to Vaishali. Pt is alert and oriented times 4. Patient confirmed demographic information address correct on facesheet. Pt lives with daughter and son-in-law.. Patient identifies Tanya Blair, daughter, as her surrogate decision maker. Pt states prior to hospitalization she has some needs for assistance to complete ADL?s. Pt use walker and has O2 with this visit but has not had it in the past. Pt confirmed no history of mental health or substance abuse. Pts PCP is Paul Earl, last seen 07/22/2024. Pharmacy of choice unsure. [facility] discussed, pt believes it is on file but to check with Tanya. Pt preference is to discharge to SNF. Discharge options discussed and Preference no preference but thinks [facility] but check with daughter. No further intervention required at this time, high school social studies teacher would be available to address any further concerns. DC Plan: SNF Contact: nini Castro, Address: Confirmed on face sheet PCP: Paul Earl
--- NOTE | 2024-07-28 16:19 | PC.SS ---
SS confirmed pt will need auth for SNF placement
[2024-07-29] VITALS (10 sets, daily range): BP systolic 118–141; BP diastolic 49–64; PULSE 65–114; RESP 16–95; TEMP 36.1–36.9; O2SAT 90–95; BMI 16.2
[2024-07-29] MEDS: HEPARIN SOD INJ 5000 UNIT/ML VIAL SC ×3 (05:38→21:35)
[2024-07-29] MEDS: CARBIDOPA/LEVODOPA 25/100 MG TABLET 1 TAB PO ×3 (05:38→21:35)
[2024-07-29 05:57] LABS: Basophils # (Auto) 0.1 Thou/mm3 (0.0-0.2); Basophils % (Auto) 1 % (0-2.5); Eosinophils # (Auto) 0.8 Thou/mm3 (0.0-0.5); Eosinophils % (Auto) 9 % (0-10); Hematocrit 33.6 % (36.0-46.0); Immature Granulocytes % (Auto) 2 % (0-0); Immature Granulocytes Auto 0.14 Thou/mm3 (0.00-0.00); Lymphocytes # (Auto) 1.5 Thou/mm3 (1.0-4.8); Lymphocytes % (Auto) 18 % (10-50); Mean Corpuscular HGB Conc 32.7 g/dl (31.0-37.0); Mean Corpuscular Hemoglobin 29.5 pg (25.0-35.0); Mean Corpuscular Volume 90 fL (80-100); Monocytes # (Auto) 0.9 Thou/mm3 (0.0-0.8); Monocytes % (Auto) 10 % (0-12); Neutrophils # (Auto) 5.2 Thou/mm3 (1.8-7.7); Neutrophils % (Auto) 60 % (37-80); Nucleated Red Blood Cell % 0 /100 WBC (0); Platelet Count 217 Thou/mm3 (140-440); RDW Standard Deviation 48.7 fL (36.4-46.3); Red Blood Count 3.73 Miln/mm3 (4.00-5.20); White Blood Count 8.6 Thou/mm3 (3.6-11.0)
[2024-07-29 06:35] LABS: Alanine Aminotransferase < 7 U/L (10-49); Albumin, Serum 3.4 gm/dL (3.4-4.8); Albumin/Globulin Ratio 1.5 (1.2-2.2); Alkaline Phosphatase 47 U/L (46-116); Anion Gap 5 (7-16); Aspartate Amino Transferase 16 U/L (0-34); BUN/Creatinine Ratio 23 Ratio (12-20); Bilirubin,Total 0.4 mg/dL (0.3-1.2); Blood Urea Nitrogen 18 mg/dL (9-23); Calcium 8.9 mg/dL (8.3-10.6); Calcium (Corrected) 9.4 mg/dL (8.5-10.1); Carbon Dioxide 28.9 mMol/L (20.0-31.0); Chloride 103 mMol/L (98-107); Creatinine (Component) 0.8 mg/dL (0.6-1.3); Estimated Creatinine Clearance 35.2 mL/min (>60); Globulin 2.2 gm/dL (2.3-3.5); Glucose 94 mg/dL (74-106); Magnesium 1.8 mg/dL (1.6-2.6); Osmolality,Calculated 275 (275-295); Potassium 4.4 mMol/L (3.4-5.1); Sodium 137 mMol/L (136-145); Total Protein 5.6 gm/dL (5.7-8.2); eGFR > 60 See Note
--- NOTE | 2024-07-29 07:28 | ESPR_ITS ---
Documentation for date of: 07/29/24 Subjective Subjective Interval history: No acute overnight events. Pain appears controlled. Denies new or worsening symptoms. Denies fever, chills, headaches, chest pain, sob, cough, GI or urinary symptoms. Vitals and labs reviewed and appear baseline without significant derangement. Pending placement. Exam Vital Signs Temp Pulse Resp BP Pulse Ox O2 Del Method O2 Flow Rate 98.4 F 65 20 141/64 H 95 Room Air 2 07/29/24 04:00 07/29/24 04:00 07/29/24 04:00 07/29/24 04:00 07/29/24 04:00 07/29/24 04:00 07/28/24 20:00 Narrative Exam General: A/O x3, no acute distress, frail elderly Eyes: PERRL, EOMI. Anicteric, vision grossly intact. Ears: No ear pain, no ear discharge, Hearing grossly intact. Nose: No nasal discharge. Mouth/Throat: Moist mucous membranes, no redness, no lesions. Neck: Neck supple, non-tender, no cervical lymphadenopathy. Lungs: Clear MARYSE to auscultation and percussion, No accessory muscle use. Cardio: Normal S1/S2, regular rhythm, no murmurs, no JVD Abdomen: Soft, non-tender, no palpable masses, peristalsis present, no guarding or rebound. Extremities: Symmetrical, no significant deformities, no peripheral edema , non-tender, peripheral pulses presents. Skin: No rashes, no lesions, warm to touch. Skin tear in L forearm Neuro: No focal neurological deficits. motor and sensory intact Psych: Cooperative, appropriate mood and effect. Objective Labs 07/30/24 04:57 07/30/24 04:57 Labs: Laboratory Results - last 24 hr 07/29/24 04:53 WBC 8.6 RBC 3.73 L Hgb 11.0 L Hct 33.6 L MCV 90 MCH 29.5 MCHC 32.7 RDW Std Deviation 48.7 H Plt Count 217 D Neut % (Auto) 60 Lymph % (Auto) 18 [place] % (Auto) 10 Eos % (Auto) 9 Baso % (Auto) 1 Neut # (Auto) 5.2 Lymph # (Auto) 1.5 [place] # (Auto) 0.9 H Eos # (Auto) 0.8 H Baso # (Auto) 0.1 Immature Gran # (Auto) 0.14 H Absolute Nucleated RBC 0.00 Immature Gran % 2 H Nucleated RBC % 0 Sodium 137 Potassium 4.4 Chloride 103 Carbon Dioxide 28.9 Anion Gap 5 L BUN 18 Creatinine 0.8 Estim Creat Clear Calc 35.2 L eGFR > 60 BUN/Creatinine Ratio 23 H Glucose 94 Calculated Osmolality 275 Calcium 8.9 Corrected Calcium 9.4 Magnesium 1.8 Total Bilirubin 0.4 AST 16 ALT < 7 L Alkaline Phosphatase 47 Total Protein 5.6 L Albumin 3.4 Globulin 2.2 L Albumin/Globulin Ratio 1.5 ABG Interpretation ABG results: 07/27/24 18:30 VBG pH 7.41 VBG pCO2 46 VBG pO2 33 VBG Base Excess 4 H Quality Measures Quality Measures none Advance care planning discussed with:: patient Assessment & Plan Assessment Current Active Medications: Generic Name Dose Route Start Last Admin Trade Name Freq PRN Reason Stop Dose Admin Acetaminophen 650 mg 07/27/24 23:08 Acetaminophen 325 Mg Tablet PO 08/26/24 22:49 Q6HR PRN Fever >100.4and; Pain 1-3 Hydrocodone Bitart/Acetaminophen 1 tab 07/27/24 22:08 Hydrocodone/Apap 5/325 Tablet PO 08/01/24 22:07 Q4HR PRN PAIN SCALE 4-6 (Moderate Carbidopa/Levodopa 1 tab 07/28/24 06:00 07/29/24 05:38 Carbidopa/Levodopa 25/100 Mg Tablet PO 08/27/24 05:59 1 tab TID CLARISA Administration Heparin Sodium (Porcine) 5,000 unit 07/28/24 06:00 07/29/24 05:38 Heparin Sod Inj 5000 Unit/Ml Vial SC 08/11/24 05:59 5,000 unit Q8HR CLARISA Administration Metoprolol Succinate 100 mg 07/28/24 09:00 07/28/24 08:20 Metoprolol Succinate Xl 25 Mg Tabcr PO 08/27/24 08:59 100 mg QDAY CLARISA Administration Morphine Sulfate 1 mg 07/27/24 22:08 Morphine Sulf Inj 10 Mg/Ml Vial IVP 08/01/24 22:07 Q2H PRN PAIN SCALE 7-10 (Severe Ondansetron HCl 4 mg 07/27/24 22:08 Ondansetron Inj 2 Mg/Ml Inj 2 Ml IVP 08/26/24 22:07 Q6H PRN NAUSEA OR VOMITING Protocol Plan 88-year-old female with past medical history of hypertension, Parkinson disease, and recurrent falls admitted to the hospital on 07/27/2024 due to unsafe discharge disposition and sacral fractures. Unsafe discharge disposition Sacral fractures, 3rd and 4th Ground-level fall Hx of recurrent falls Hx of Parkinson disease Patient had a fall yesterday night while walking with her walker Patient denies any trauma to the head, but she does not remember quite well what led to her fall. Patient does have a history of Parkinson disease and has been having a shuffling gait as per daughter at bedside. Patient was recently seen in the ED on 07/23/2024 due to another ground-level fall. Abdomen/pelvis CT and lumbar spine CT showed 3rd and 4th sacral fractures. Patient lives alone and was able to do some of her daily activities at home, but after recently she has been having increased weakness and more difficulty with standing up from sitting position and with moving around the house. ? Continue home CARBIDOPA LEVODOPA ? Pain management, NORCO, TYLENOL, MORPHINE ? Pending SNF placement ? Pending physical therapy HTN BP 141/64, HR WNL. ? Resumed home LOSARTAN 25 mg daily Health maintenance Diet: Regular diet GI prophylaxis: Not indicated DVT prophylaxis: HEPARIN subcu Antibiotics: Not indicated CODE STATUS: Full code Disposition: Pending placement Case was discussed with attending physician and senior resident. Hung Barakat DO PGYI This document was transcribed using voice recognition technology. Minor inaccuracies may be present. Attending Provider Attestation/Addendum Chela Anton DO, attest that I was physically present for the monae portions of the service and evaluated the patient with the resident and I reviewed and discussed the case with the resident and agree with the resident's findings and plans of care as documented above Patient seen and evaluated this AM. Pain is well controlled. Pending PT evaluation. Patient will need placement. Anticipate DC within next 24h, pending authorization.
[2024-07-29] MEDS: METOPROLOL SUCCINATE XL 25 MG TABCR 100 MG PO (08:03)
[2024-07-29] MEDS: LOSARTAN POTASSIUM 25 MG TABLET PO (08:04)
--- NOTE | 2024-07-29 13:22 | PC.SS ---
Addendum entered by Anabela Mayorga 07/29/24 17:29: [phone] requesting H&P, most recent progress note, last BM, and RD note. All requested documents sent to Sonia via [employer]. Sonia to present to their doctor. Original Note: SS contacted patient's daughter, Ana to confirm SNF of choice. Ana stated she would like 1st choice: [facility] 2: [facility] 3rd choice: [facility]. SS submitted referral via [employer]. [facility] is pending insurance verification and informed patient prefers their facility. [facility] pending response. [facility] has accepted patient.
[2024-07-29] MEDS: DOCUSATE SOD 100 MG CAPSULE 200 MG PO (22:27)
[2024-07-29] MEDS: Milk Of Magnesia Susp 30 ML UDC PO (22:27)
[2024-07-30] VITALS (10 sets, daily range): BP systolic 108–148; BP diastolic 50–68; PULSE 64–74; RESP 17–93; TEMP 36.1–37.1; O2SAT 91–100; BMI 13.0
[2024-07-30 05:27] LABS: Basophils # (Auto) 0.1 Thou/mm3 (0.0-0.2); Basophils % (Auto) 1 % (0-2.5); Eosinophils # (Auto) 0.7 Thou/mm3 (0.0-0.5); Eosinophils % (Auto) 8 % (0-10); Hemoglobin 11.5 g/dL (12.0-16.0); Immature Granulocytes % (Auto) 1 % (0-0); Immature Granulocytes Auto 0.13 Thou/mm3 (0.00-0.00); Lymphocytes # (Auto) 1.7 Thou/mm3 (1.0-4.8); Lymphocytes % (Auto) 18 % (10-50); Mean Corpuscular HGB Conc 32.9 g/dl (31.0-37.0); Mean Corpuscular Hemoglobin 29.3 pg (25.0-35.0); Mean Corpuscular Volume 89 fL (80-100); Monocytes # (Auto) 0.8 Thou/mm3 (0.0-0.8); Monocytes % (Auto) 9 % (0-12); Neutrophils # (Auto) 5.9 Thou/mm3 (1.8-7.7); Neutrophils % (Auto) 64 % (37-80); Nucleated Red Blood Cell % 0 /100 WBC (0); Platelet Count 237 Thou/mm3 (140-440); RDW Standard Deviation 48.5 fL (36.4-46.3); Red Blood Count 3.92 Miln/mm3 (4.00-5.20); White Blood Count 9.3 Thou/mm3 (3.6-11.0)
[2024-07-30] MEDS: HEPARIN SOD INJ 5000 UNIT/ML VIAL SC ×3 (05:36→21:08)
[2024-07-30] MEDS: CARBIDOPA/LEVODOPA 25/100 MG TABLET 1 TAB PO ×3 (05:37→21:09)
[2024-07-30 05:51] LABS: Alanine Aminotransferase < 7 U/L (10-49); Albumin, Serum 3.4 gm/dL (3.4-4.8); Albumin/Globulin Ratio 1.5 (1.2-2.2); Alkaline Phosphatase 49 U/L (46-116); Anion Gap 7 (7-16); Aspartate Amino Transferase 16 U/L (0-34); BUN/Creatinine Ratio 22 Ratio (12-20); Bilirubin,Total 0.4 mg/dL (0.3-1.2); Blood Urea Nitrogen 20 mg/dL (9-23); Calcium 8.8 mg/dL (8.3-10.6); Calcium (Corrected) 9.3 mg/dL (8.5-10.1); Carbon Dioxide 29.6 mMol/L (20.0-31.0); Chloride 103 mMol/L (98-107); Creatinine (Component) 0.9 mg/dL (0.6-1.3); Estimated Creatinine Clearance 31.3 mL/min (>60); Globulin 2.3 gm/dL (2.3-3.5); Glucose 96 mg/dL (74-106); Magnesium 2.3 mg/dL (1.6-2.6); Osmolality,Calculated 282 (275-295); Potassium 4.3 mMol/L (3.4-5.1); Sodium 140 mMol/L (136-145); Total Protein 5.7 gm/dL (5.7-8.2); eGFR > 60 See Note
[2024-07-30] MEDS: METOPROLOL SUCCINATE XL 25 MG TABCR 100 MG PO (08:19)
[2024-07-30] MEDS: DOCUSATE SOD 100 MG CAPSULE 200 MG PO (08:19)
[2024-07-30] MEDS: SENNA TABLET 1 TAB PO (08:21)
[2024-07-30] MEDS: LOSARTAN POTASSIUM 25 MG TABLET PO (08:21)
--- NOTE | 2024-07-30 09:27 | PC.SS ---
Addendum entered by CALEB Campos 07/30/24 14:58: SS update: [facility] in [place] is willing to accept the patient. Spoke with Lu with their admissions and she informs she will initiate insurance authorization process today. Updated patient's daughter Tanya to make aware. Currently insurance authorization is pending. Addendum entered by CALEB Campos 07/30/24 11:18: SS follow up: updated patient's daughter, Tanya that patient was declined with [facility]. She informs the second choice is [facility] in [place]. Sent updated packet to [place] via [employer] for their review if able to accept the patient. Patient will require insurance authorization, family is aware. Addendum entered by CALEB Campos 07/30/24 11:07: SS update: received a call from Sonia ([phone]) at [facility]. She informs that patient was denied for acute rehab by expert medical writer, with recommendation for community SNF in which she informed they do not have any open beds at this time. Original Note: SS follow up: ADULT DAYCARE COORDINATOR made telephone contact with Sonia ([phone]) at [facility] to identify if they are able to accept the patient. Sonia informs all clinicals were received and she will be reviewing today to determine if they can accept the patient and begin working on insurance authorization. Sonia informs she inform today with an update.
--- NOTE | 2024-07-30 14:34 | ESPR_ITS ---
<Statement entered by Akhil Merlos MD - 07/31/24 00:30> I discussed with and supervised the photography intern physician involved in the care of this patient. Patient assessment and plan was discussed with entire medicine team, including my attending. I agree with the assessment and plan as documented by photography intern doctor. Patient care was discussed with my attending physician Dr. Chelsi Merlos, PGY-2 Documentation for date of: 07/30/24 Subjective Subjective Interval history: Acute overnight events. Feels well today. Pain controlled with current regimen. Tolerating oral intake, having regular bowel movements. Denies fever, chills, headaches, chest pain, sob, cough, GI or urinary symptoms. Evidently, [facility] has been denied by her insurance. respiratory coordinator currently working on another facility placement. Exam Vital Signs Temp Pulse Resp BP Pulse Ox O2 Del Method O2 Flow Rate 97.5 F 67 18 108/50 L 92 L Room Air 2 07/30/24 12:00 07/30/24 12:07/30/24 12:07/30/24 12:00 07/30/24 12:07/30/24 12:07/28/24 20:00 Narrative Exam General: A/O x3, no acute distress, frail elderly Eyes: PERRL, EOMI. Anicteric, vision grossly intact. Ears: No ear pain, no ear discharge, Hearing grossly intact. Nose: No nasal discharge. Mouth/Throat: Moist mucous membranes, no redness, no lesions. Neck: Neck supple, non-tender, no cervical lymphadenopathy. Lungs: Clear MARYSE to auscultation and percussion, No accessory muscle use. Cardio: Normal S1/S2, regular rhythm, no murmurs, no JVD Abdomen: Soft, non-tender, no palpable masses, peristalsis present, no guarding or rebound. Extremities: Symmetrical, no significant deformities, no peripheral edema , non-tender, peripheral pulses presents. Skin: No rashes, no lesions, warm to touch. Skin tear in L forearm Neuro: No focal neurological deficits. motor and sensory intact Psych: Cooperative, appropriate mood and effect. Objective Labs 07/30/24 04:57 07/30/24 04:57 Labs: Laboratory Results - last 24 hr 07/30/24 04:57 WBC 9.3 RBC 3.92 L Hgb 11.5 L Hct 35.0 L MCV 89 MCH 29.3 MCHC 32.9 RDW Std Deviation 48.5 H Plt Count 237 Neut % (Auto) 64 Lymph % (Auto) 18 Davie % (Auto) 9 Eos % (Auto) 8 Baso % (Auto) 1 Neut # (Auto) 5.9 Lymph # (Auto) 1.7 Davie # (Auto) 0.8 Eos # (Auto) 0.7 H Baso # (Auto) 0.1 Immature Gran # (Auto) 0.13 H Absolute Nucleated RBC 0.00 Immature Gran % 1 H Nucleated RBC % 0 Sodium 140 Potassium 4.3 Chloride 103 Carbon Dioxide 29.6 Anion Gap 7 BUN 20 Creatinine 0.9 Estim Creat Clear Calc 31.3 L eGFR > 60 BUN/Creatinine Ratio 22 H Glucose 96 Calculated Osmolality 282 Calcium 8.8 Corrected Calcium 9.3 Magnesium 2.3 Total Bilirubin 0.4 AST 16 ALT < 7 L Alkaline Phosphatase 49 Total Protein 5.7 Albumin 3.4 Globulin 2.3 Albumin/Globulin Ratio 1.5 ABG Interpretation ABG results: 07/27/24 18:30 VBG pH 7.41 VBG pCO2 46 VBG pO2 33 VBG Base Excess 4 H Quality Measures Quality Measures none Advance care planning discussed with:: patient Assessment & Plan Assessment Current Active Medications: Generic Name Dose Route Start Last Admin Trade Name Joseq PRN Reason Stop Dose Admin Acetaminophen 650 mg 07/27/24 23:08 Acetaminophen 325 Mg Tablet PO 08/26/24 22:49 Q6HR PRN Fever >100.4and; Pain 1-3 Hydrocodone Bitart/Acetaminophen 1 tab 07/27/24 22:08 Hydrocodone/Apap 5/325 Tablet PO 08/01/24 22:07 Q4HR PRN PAIN SCALE 4-6 (Moderate Albuterol/Ipratropium 3 ml 07/29/24 08:40 Albuterol/Ipratropium (Duoneb) Rt Daily 3 Ml Nebu INH 08/28/24 08:39 Q6HRRT PRN Wheezing Carbidopa/Levodopa 1 tab 07/28/24 06:00 07/30/24 13:05 Carbidopa/Levodopa 25/100 Mg Tablet PO 08/27/24 05:59 1 tab TID CLARISA Administration Docusate Sodium 200 mg 07/29/24 22:05 07/30/24 08:19 Docusate Sod 100 Mg Capsule PO 08/28/24 22:04 200 mg QDAY CLARISA Administration Protocol Heparin Sodium (Porcine) 5,000 unit 07/28/24 06:00 07/30/24 13:05 Heparin Sod Inj 5000 Unit/Ml Vial SC 08/11/24 05:59 5,000 unit Q8HR CLARISA Administration Losartan Potassium 25 mg 07/29/24 09:00 07/30/24 08:21 Losartan Potassium 25 Mg Tablet PO 08/28/24 08:59 25 mg DAILY CLARISA Administration Metoprolol Succinate 100 mg 07/28/24 09:00 07/30/24 08:19 Metoprolol Succinate Xl 25 Mg Tabcr PO 08/27/24 08:59 100 mg QDAY CLARISA Administration Morphine Sulfate 1 mg 07/27/24 22:08 Morphine Sulf Inj 10 Mg/Ml Vial IVP 08/01/24 22:07 Q2H PRN PAIN SCALE 7-10 (Severe Ondansetron HCl 4 mg 07/27/24 22:08 Ondansetron Inj 2 Mg/Ml Inj 2 Ml IVP 08/26/24 22:07 Q6H PRN NAUSEA OR VOMITING Protocol Sennosides 1 tab 07/29/24 22:05 07/30/24 08:21 Senna Tablet PO 08/28/24 22:04 1 tab QDAY CLARISA Administration Protocol Plan 88-year-old female with past medical history of hypertension, Parkinson disease, and recurrent falls admitted to the hospital on 07/27/2024 due to unsafe discharge disposition and sacral fractures. Unsafe discharge disposition Sacral fractures, 3rd and 4th Ground-level fall Hx of recurrent falls Hx of Parkinson disease Patient had a fall yesterday night while walking with her walker Patient denies any trauma to the head, but she does not remember quite well what led to her fall. Patient does have a history of Parkinson disease and has been having a shuffling gait as per daughter at bedside. Patient was recently seen in the ED on 07/23/2024 due to another ground-level fall. Abdomen/pelvis CT and lumbar spine CT showed 3rd and 4th sacral fractures. Patient lives alone and was able to do some of her daily activities at home, but after recently she has been having increased weakness and more difficulty with standing up from sitting position and with moving around the house. ? Continue home CARBIDOPA LEVODOPA ? Pain management, NORCO, TYLENOL, MORPHINE ? Pending SNF placement ? Pending physical therapy HTN BP 141/64, HR WNL. ? Resumed home LOSARTAN 25 mg daily Health maintenance Diet: Regular diet GI prophylaxis: Not indicated DVT prophylaxis: HEPARIN subcu Antibiotics: Not indicated CODE STATUS: Full code Disposition: Pending placement Case was discussed with attending physician and senior resident. Hung Barakat DO PGYI This document was transcribed using voice recognition technology. Minor inaccuracies may be present. Attending Provider Attestation/Addendum I, Chela Gagnon DO, attest that I was physically present for the monae portions of the service and evaluated the patient with the resident and I reviewed and discussed the case with the resident and agree with the resident's findings and plans of care as documented above Patient seen and evaluated this AM. Pending authorization for SNF. Anticipate discharge within the next 24 hours. No acute events overnight.
[2024-07-31] VITALS: BP 106/59; PULSE 73; RESP 20; TEMP 36.4; O2SAT 93
[2024-07-31 04:00] VITALS: BP 128/67; PULSE 65; RESP 16; TEMP 36.3; O2SAT 93
[2024-07-31] MEDS: HEPARIN SOD INJ 5000 UNIT/ML VIAL SC ×2 (05:51→13:11)
[2024-07-31] MEDS: CARBIDOPA/LEVODOPA 25/100 MG TABLET 1 TAB PO ×2 (05:52→13:11)
[2024-07-31 08:15] VITALS: BP 109/76; PULSE 70; RESP 18; TEMP 36.4; O2SAT 91
--- NOTE | 2024-07-31 08:27 | PC.SS ---
Addendum entered by CALEB Campos 07/31/24 12:18: Patient does not have coverage for transport services, family requesting transport to be arranged as unable to accommodate. [facility] transport services provided ETA 2:30-3pm. SNF staff is aware. Family was notified. Jovani aware. Addendum entered by CALEB Campos 07/31/24 08:36: Updated Dr. Merlos, bedside RN-Wendy. RN confirms the patient has had a recent BM. Provided a voicemail to patient's daughter Tanya to update as well. Original Note: SS follow up: spoke with Jacquie and she informs they received authorization for SNF placement. Contacted Lu with admissions at [facility] in [place] and she confirmed authorization for SNF was obtained. Bill is requesting patient to discharge after 2:30pm this afternoon as they will have discharges this morning and need to get patient's room clean/ready.
[2024-07-31 09:01] VITALS: BP 128/67; PULSE 65
[2024-07-31] MEDS: METOPROLOL SUCCINATE XL 25 MG TABCR 100 MG PO (09:01)
[2024-07-31] MEDS: DOCUSATE SOD 100 MG CAPSULE 200 MG PO (09:01)
[2024-07-31] MEDS: LOSARTAN POTASSIUM 25 MG TABLET PO (09:01)
[2024-07-31] MEDS: SENNA TABLET 1 TAB PO (09:01)
--- NOTE | 2024-07-31 11:37 | PC.NURSE ---
Patient being discharge to [facility] in [place]. Transportation will not happen till after 2. Will continue to monitor patient.
--- NOTE | 2024-07-31 12:00 | PC.NURSE ---
Gave report to Donald at [facility]. Medication list also faxed to facility
[2024-07-31 12:15] VITALS: BP 113/58; PULSE 66; RESP 20; TEMP 36.8; O2SAT 93
--- NOTE | 2024-07-31 14:36 | ESDS_ITS ---
<Statement entered by Chela Gagnon DO - 08/01/24 07:27> I, Chela Gagnon DO, attest that I was physically present for the monae portions of the service and evaluated the patient with the resident and I reviewed and discussed the case with the resident and agree with the resident's findings and plans of care as documented above <Statement entered by Akhil Merlos MD - 08/01/24 07:11> I discussed with and supervised the validation intern physician involved in the care of this patient. Patient assessment and plan was discussed with entire medicine team, including my attending. I agree with the assessment and plan as documented by validation intern doctor. Patient care was discussed with my attending physician Dr. Chelsi Merlos, PGY-2 Planned Discharge Date 07/31/24 DS: Providers Provider Date of admission: 07/28/24 14:10 Primary care physician: TERA Joyce Admitting Provider: Jamee Cordoba MD Attending Provider on Admission: Chela Gagnon DO Consults: 07/27/24 22:56 Referral Physical Therapy Routine Comment: Physician Instructions: 07/27/24 23:05 Referral Wound Care Routine Comment: 07/29/24 10:32 Referral OP Wound Healing Dept Routine Comment: Left shoulder and forearm large skin tears from fa Attending Provider on DC: Chela Gagnon DO Discharging Provider: Chela Gagnon DO DS: Diagnosis Problem List Completed Was Problem List Reviewed/Reconciled?: Yes Hospital Course Hospital Course Hospital course: This is a 88-year-old female with PMHx of HTN, Parkinson disease, and recurrent falls admitted for unsafe discharge disposition and sacral fractures. CT lumbar showed acute appearing sacral fracture, 3rd and 4th sacral segment with angulation at the fracture site, but no surgical intervention is warranted. She continued on pain control and home medications. Labs and vitals have been consistently stable and without significant derangement from baseline. She was evaluated by PT who recommended SNF placement for mobility training. She was discharged to snf and was stable on discharge. IMAGE FINDINGS: * CT cervical spine, face, thoracic spine showed no acute fracture. * CT lumbar showed acute appearing sacral fracture, 3rd and 4th sacral segment with angulation at the fracture site. * Head CT was negative for acute pathology. * CXR showed severe pulmonary fibrosis, no pneumothorax. PATIENT INSTRUCTIONS: * Follow-up with PCP within 1-2 weeks of discharge. * Recommended outpatient follow-up for sacral fracture noted above. * Return to Emergency Room if symptoms persist, worsen, or new symptoms develop. * Continue taking medications as prescribed below. * Continue with wound-care with instructions listed below. ADMISSION DIAGNOSES: Sacral fractures, 3rd and 4th Ground-level fall Deconditioning Hx of recurrent falls Hx of Parkinson disease HTN Case was discussed with attending physician and senior resident. Hung Barakat DO PGYI Time Spent with Patient Time attestation: Total time spent providing and/or coordinating discharge services: Time spent: Greater than 30 minutes Exam Vital Signs Temp Pulse Resp BP Pulse Ox O2 Del Method O2 Flow Rate 97.6 F 65 18 128/67 91 L Room Air 2 07/31/24 08:15 07/31/24 09:01 07/31/24 08:15 07/31/24 09:01 07/31/24 08:15 07/31/24 08:15 07/31/24 00:00 Narrative Exam General: A/O x3, no acute distress, frail elderly Eyes: PERRL, EOMI. Anicteric, vision grossly intact. Ears: No ear pain, no ear discharge, Hearing grossly intact. Nose: No nasal discharge. Mouth/Throat: Moist mucous membranes, no redness, no lesions. Neck: Neck supple, non-tender, no cervical lymphadenopathy. Lungs: Clear MARYSE to auscultation and percussion, No accessory muscle use. Cardio: Normal S1/S2, regular rhythm, no murmurs, no JVD Abdomen: Soft, non-tender, no palpable masses, peristalsis present, no guarding or rebound. Extremities: Symmetrical, no significant deformities, no peripheral edema , non-tender, peripheral pulses presents. Skin: No rashes, no lesions, warm to touch. Skin tear in L forearm Neuro: No focal neurological deficits. motor and sensory intact Psych: Cooperative, appropriate mood and effect. Discharge Plan Plan Patient Disposition: Xfer [facility]illed [facility] (SNF) Patient condition on transfer: Stable Care Plan Goals: * Follow-up with PCP within 1-2 weeks of discharge. * Recommended outpatient follow-up for sacral fracture noted above. * Return to Emergency Room if symptoms persist, worsen, or new symptoms develop. * Continue taking medications as prescribed below. Wound care: 1) Skin tear to left shoulder and left forearm: cleanse with NS, pat dry, apply triple abx ointment and cover with allyven dressing daily 2) Abrasion to left forehead: cleanse with Ns, pat dry, apply triple abx ointment daily 3) Blanchable redness to coccyx and bilateral heels: allyven dressing daily side to side repositioning except meals and negative heel pressure bilaterally Prescriptions/Referrals Prescriptions/Med Rec: New hydrocodone-acetaminophen 5-325 mg tablet 1 tab PO Q8H MDD 15 PRN (Reason: pain) Qty: 9 0RF Continued metoprolol succinate [Toprol XL] 100 MG tablet extended release 24 hr 100 mg PO QDAY Qty: 0 carbidopa-levodopa 25-100 mg Tablet 1 tab PO TID Qty: 0 doxycycline hyclate 100 mg capsule 100 mg PO BID Qty: 14 0RF prednisone 10 mg tablet 10 mg PO Q12H Patient Comments: TAKE 1 TABLET BY MOUTH TWICE A DAY losartan 25 mg tablet 25 mg PO DAILY Patient Comments: TAKE ONE TABLET BY MOUTH EVERY DAY FOR BLOOD PRESSURE mirtazapine 7.5 mg tablet 7.5 mg PO Q12H Patient Comments: TAKE 1 TABLET BY MOUTH EVERYDAY AT BEDTIME Referrals: Paul Powers, HYDROMETEOROLOGY TEACHER-C [Primary Care Provider] - Patient/Caregiver Discharge Instructions Print Language: Syrian Stand Alone Forms: [facility] Award Info., Patient Portal Info Letter Discharge Order Discharge Orders: Discharge (Routine); Ordered 07/31/24 Ordered By: Akhil Merlos Quality Discharge Quality Measures VTE prophylaxis
== END 2024-07-31 14:38 | disposition skilled nursing facility (03) | DRG 552 ==
LOC: SERX 21:35 → SERHOLD 22:53 → S3SX 07-28 14:24 → SERHOLD 07-29 06:37
PROVIDERS: Admitting Provider Student in an Organized Health Care Education/Training Program; Emergency Provider Emergency Medicine; Visit Provider Internal Medicine
DX: S32.10XA Unspecified fracture of sacrum, initial encounter for closed fracture (principal); G20.A1 Parkinson's disease without dyskinesia, without mention of fluctuations; W18.30XA Fall on same level, unspecified, initial encounter; I10 Essential (primary) hypertension; R29.6 Repeated falls; Y93.01 Activity, walking, marching and hiking; Y92.009 Unspecified place in unspecified non-institutional (private) residence as the place of occurrence of the external cause; Z87.891 Personal history of nicotine dependence; Z79.899 Other long term (current) drug therapy; Z90.710 Acquired absence of both cervix and uterus; J84.10 Pulmonary fibrosis, unspecified
CPT/HCPCS: 36415; 70450; 70486; 71045; 71250; 72125; 72128; 72131; 74176; 80053; 81001; 82010; 82248; 82550; 82803; 83605; 83735; 83880; 84145; 84439; 84443; 84484; 85025; 85610; 85652; 85730; 86140; 87040; 87081; 87400; 87811; 93005; 96361; 96374; 97162; 99285; G0378; J1644; J2405; J7030; A9270

== ENCOUNTER → 2024-09-06 | Outpatient (CLI) | payer MEDICARE, SELFPAY ==
--- NOTE | 2024-09-06 11:02 | XR_ITS ---
EXAMINATION: PET/CT FUSION SKULL TO THIGH EXAM DATE AND TIME: September 06, 2024, 1211 hours INDICATIONS: Diagnosis solitary pulmonary nodule CTDI:vol (mGy) : 2.28 DLP: (mGycm) 208.42 PROCEDURE: 15.1 mCi FDG was administered intravenously To allow for distribution and uptake of radiotracer, the patient was allowed to rest quietly in a shielded room. Imaging was performed on an integrated 16-slice PET/CT scanner, with scanning from the skull base to the mid thigh. Serum blood glucose at the time of the injection was measured 89 mg/dL. CT scanning was performed without oral or intravenous contrast material. FINDINGS: Head and Neck: There is no christophe hypermetabolism in the neck. The visualized portions of the brain are normal in appearance on CT. Chest: Severe pulmonary fibrosis pattern Numerous foci of hypermetabolic activity in the right lung which may relate to superimposed pneumonia in the right lung and left lung is well Abdomen and Pelvis: There is no christophe hypermetabolism in retroperitoneal or pelvic chains. The spleen is normal in size and FDG avidity. Musculoskeletal: Marrow uptake is within normal range. IMPRESSION: Severe bilateral pulmonary fibrosis Multiple foci of hypermetabolic activity in both lungs which may relate to superimposed bilateral pneumonia
== END | disposition home or self-care (01) ==
LOC: CDIM 09-11 08:27
DX: J84.10 Pulmonary fibrosis, unspecified (principal); J18.9 Pneumonia, unspecified organism
CPT/HCPCS: 78815; A9552

== ENCOUNTER → 2024-11-01 | Outpatient (CLI) | payer MEDICARE, SELFPAY ==
[2024-11-01 13:41] LABS: Collection Type, Urine Clean Catch
[2024-11-01 13:53] LABS: Basophils # (Auto) 0.1 Thou/mm3 (0.0-0.2); Basophils % (Auto) 1 % (0-2.5); Eosinophils # (Auto) 0.4 Thou/mm3 (0.0-0.5); Eosinophils % (Auto) 6 % (0-10); Hematocrit 32.3 % (36.0-46.0); Hemoglobin 10.4 g/dL (12.0-16.0); Immature Granulocytes Auto 0.02 Thou/mm3 (0.00-0.00); Lymphocytes # (Auto) 0.9 Thou/mm3 (1.0-4.8); Lymphocytes % (Auto) 14 % (10-50); Mean Corpuscular HGB Conc 32.2 g/dl (31.0-37.0); Mean Corpuscular Hemoglobin 30.0 pg (25.0-35.0); Mean Corpuscular Volume 93 fL (80-100); Monocytes # (Auto) 0.5 Thou/mm3 (0.0-0.8); Monocytes % (Auto) 8 % (0-12); Neutrophils # (Auto) 4.4 Thou/mm3 (1.8-7.7); Neutrophils % (Auto) 71 % (37-80); Nucleated Red Blood Cell # 0.00 Thou/mm3 (0.00-0.00); Nucleated Red Blood Cell % 0 /100 WBC (0); Platelet Count 181 Thou/mm3 (140-440); RDW Standard Deviation 52.4 fL (36.4-46.3); Red Blood Count 3.47 Miln/mm3 (4.00-5.20); White Blood Count 6.2 Thou/mm3 (3.6-11.0)
[2024-11-01 14:02] LABS: Bacteria,Urine 1+; Bilirubin,Urine Negative (Negative); Blood,Urine 1+ (Negative); Clarity,Urine Turbid (Clear/Hazy); Color,Urine Lt-Yellow (Lt Yel-Yel); Culture Indicated,Urine Contaminated; Glucose, Urine Negative (Negative); Ketones,Urine Negative (Negative); Leukocyte Esterase,Urine Positive (Negative); Nitrite,Urine Negative (Negative); PH,Urine 5.5 (5.0-7.0); Protein,Urine Negative (Neg - Trace); RBC,Urine 22 /hpf (0-3); Specific Gravity,Urine 1.014 (1.001-1.035); Squamous Epithelial Cell,Urine 66 /hpf (0-5); Urobilinogen,Urine Negative mg/dL (0.0-1.0); WBC,Urine 63 /hpf (0-5)
[2024-11-01 14:04] LABS: Glucose Estimated Average 105 mg/dL (80-131); Hemoglobin A1C 5.3 % Hgb (4.8-6.0)
[2024-11-01 14:17] LABS: Alanine Aminotransferase < 7 U/L (10-49); Albumin, Serum 4.1 gm/dL (3.4-4.8); Albumin/Globulin Ratio 1.6 (1.2-2.2); Alkaline Phosphatase 49 U/L (46-116); Anion Gap 7 (7-16); Aspartate Amino Transferase 18 U/L (0-34); BUN/Creatinine Ratio 17 Ratio (12-20); Bilirubin,Total 0.4 mg/dL (0.3-1.2); Blood Urea Nitrogen 20 mg/dL (9-23); Calcium 9.7 mg/dL (8.3-10.6); Calcium (Corrected) 9.7 mg/dL (8.5-10.1); Carbon Dioxide 27.1 mMol/L (20.0-31.0); Cardiac Risk Estimate 3.2 RATIO (3.7-5.6); Chloride 107 mMol/L (98-107); Cholesterol 168 mg/dL (132-200); Creatinine (Component) 1.2 mg/dL (0.6-1.3); Globulin 2.6 gm/dL (2.3-3.5); Glucose 90 mg/dL (74-106); HDL Cholesterol 52 mg/dL (40-60); LDL Cholesterol,Calculated 99 mg/dL (0-130); Osmolality,Calculated 283 (275-295); Potassium 4.1 mMol/L (3.4-5.1); Sodium 141 mMol/L (136-145); Thyroid Stimulating Hormone 1.89 uIU/mL (0.55-4.78); Total Protein 6.7 gm/dL (5.7-8.2); Triglycerides 83 mg/dL (30-150); eGFR 43 See Note
[2024-11-01 14:25] LABS: Syphilis Nonreactive (Nonreactive)
[2024-11-01 14:56] LABS: Folate 12.75 ng/mL (>5.38); Hepatitis A Antibody IgM Non Reactive (Non React); Hepatitis B Core Antibody IgM Non Reactive (Non React); Hepatitis B Surface Antigen Non Reactive (Non React); Hepatitis C Antibody Non Reactive (Non React); Vitamin B12 1932 pg/mL (211-911); Vitamin D 25 Hydroxy Total 52.8 ng/mL (7.3-40.2)
== END | disposition home or self-care (01) ==
LOC: COPL 12:41
PROVIDERS: PCP Internal Medicine; Referring Provider Internal Medicine; Visit Provider Internal Medicine
DX: G20.A1 Parkinson's disease without dyskinesia, without mention of fluctuations (principal); I10 Essential (primary) hypertension; R41.3 Other amnesia; R44.1 Visual hallucinations; Z11.3 Encounter for screening for infections with a predominantly sexual mode of transmission
CPT/HCPCS: 36415; 80053; 80061; 80074; 81001; 82306; 82607; 82746; 83036; 84443; 85025; 86780